=== PATIENT | female | born 1940 | race Caucasian/White ===

== ENCOUNTER 2025-02-02 04:34 | Inpatient (IN) | payer MEDICARE, OTHER ==
[2025-02-02] VITALS (12 sets, daily range): BP systolic 118–137; BP diastolic 44–78; PULSE 75–110; RESP 17–33; O2SAT 93–98
[~2025-02-02] VITALS: Ht 251.5 cm; Wt 57.6 kg
[2025-02-02] MEDS: ALBUTEROL SULF 2.5 MG/0.5ML(0.5%) NEB SOLN ONE (04:56)
[2025-02-02] MEDS: ALBUTEROL SULF 2.5 MG/0.5ML(0.5%) NEB SOLN NEB ONE (04:56)
[2025-02-02 05:31] LABS: Basophils # (auto) 0 10 ^3/uL (0-0.2); Eosinophils # (auto) 0 10 ^3/uL (0-0.8); Hematocrit 28.8 % (36.0-46.0); Mean Corpuscular Hgb Conc. 31.4 g/dL (32.0-36.0)
[2025-02-02 05:33] LABS: Basophils % (auto) 0.3 % (0.0-2.0); Lymphocytes # (auto) 0.4 10 ^3/uL (0.4-5.4); Lymphocytes % (auto) 5.5 % (10.0-50.0); Mean Corpuscular Hemoglobin 25.2 pg (28.0-32.0); Mean Corpuscular Volume 80.3 fL (80.0-100.0); Monocytes # (auto) 0.6 10 ^3/uL (0-1.3); Monocytes % (auto) 7.5 % (0.0-12.0); Neutrophils # (auto) 7.1 10 ^3/uL (1.6-8.6); Neutrophils % (auto) 86.7 % (37.0-80.0); Nucleated Red Blood Cells % 0.3 %; Platelet Count (auto) 131 10^3/uL (140-450); Red Blood Cells 3.58 10^6/uL (4.0-5.20); Red Cell Distribution Width 18.5 % (11.8-14.3); White Blood Cell 8.2 10^3/uL (4.4-10.8)
--- NOTE | 2025-02-02 05:40 | DVH ---
EXAM: XR Chest, 1 View CLINICAL INDICATION: SOB TECHNIQUE: Frontal view of the chest. COMPARISON: None FINDINGS: LUNGS AND PLEURAL SPACES: See below. HEART: Cardiomegaly with pulmonary congestion and edema. Superimposed pneumonia cannot be excluded. MEDIASTINUM: Unremarkable. Normal mediastinal contour. BONES/JOINTS: Unremarkable. No acute fracture. OTHER FINDINGS: . IMPRESSION: Cardiomegaly with pulmonary congestion and edema. Superimposed pneumonia cannot be excluded.
[2025-02-02 05:44] LABS: Albumin 3.8 g/dL (3.2-4.8); Alkaline Phosphatase 87 U/L (46-116); Anion Gap 12 (5-15); BUN/Creatinine Ratio 18.3 (10.0-20.0); Bilirubin, Total 0.5 mg/dL (0.2-1.0); Calcium 9.1 mg/dL (8.7-10.4); Potassium 4.4 mmol/L (3.5-5.1); Sodium 143 mmol/L (136-145)
--- NOTE | 2025-02-02 05:53 | ED.PDOC ---
History of Present Illness HPI Comments 84 y/o F is BIBA from [facility] ([facility]) for NSTEMI transfer, today. Patient is reported to have, initially, seen at [facility] for hematuria/vaginal bleeding and shortness of breath, yesterday, was found tachypneic, hypoxic, with positive JVD, yielding concern for possible CHF exacerbation. Patient was also noted to have been found with a hemoglobin of 7.7 and was transfused with blood after facility alongside with a BNP elevation at a value of approximately 700. Her chest x-ray performed at [facility] also showed cardiomegaly. During her course stay, she was also noted to have been found desaturating and was placed on BiPAP and given a nitroglycerin patch, which following troponin levels showed increasing trend, indicating for NSTEMI. Prior to arrival, patient was given also a heparin bolus drip. On arrival to ED, patient reports no additional complaints aside from what was stated earlier, such as chest pain, nausea, vomiting, cough, or congestion. Per [facility] transfer record, patient has a history of AFib, stage IV lung cancer, ovarian cancer status post total hysterectomy, CVA, hypertension, recurrent UTIs, coronary angioplasty, and heart valve replacement. Time Seen by MD: 04:30 Reviewed Notes: Nurses Notes, Butcher Apprentice Notes, Medications, Allergies Allergies: Coded Allergies: Diphenhydramine (Verified Allergy, Unknown, 02/02/25) Home Meds Reported Medications Pantoprazole Sodium Sesquihydr (Pantoprazole Sodium) 40 Mg Tab, 1 TAB PO DAILY 02/02/25 Tolterodine Tartrate (Tolterodine Tartrate ER) 2 Mg Cap, 1 TAB PO DAILY 02/02/25 Warfarin Sodium (Warfarin Sodium) 3 Mg Tab, 1 TAB PO DAILY 02/02/25 Warfarin Sodium (Warfarin Sodium) 2 Mg Tab, 1 TAB PO DAILY 02/02/25 Amlodipine Besylate (Amlodipine Besylate) 10 Mg Tab, 1 TAB PO DAILY 02/02/25 Nitroglycerin (Nitroglycerin Transdermal) 0.4 Mg/Hr Dis, 1 PATCH TD DAILY 02/02/25 Lovastatin (Lovastatin) 20 Mg Tab, 1 TAB PO DAILY 02/02/25 Allopurinol (Allopurinol) 100 Mg Tab, 1 TAB PO DAILY 02/02/25 Magnesium Oxide (Magnesium Oxide) 400 Mg Tab, 1 TAB PO TID 02/02/25 Folic Acid (Folic Acid) 1 Mg Tab, 1 TAB PO BID 02/02/25 Valsartan (Valsartan) 80 Mg Tab, 1 TAB PO DAILY 02/02/25 Amiodarone HCl (Amiodarone HCl) 200 Mg Tab, 1 TAB PO BID 02/02/25 Information Source: Patient, Emergency Med Personnel Mode of Arrival: EMS Severity: Moderate Timing: Hours Duration: Since onset Prehospital treatment: Other (See HPI) Review of Systems: REVIEW OF SYSTEMS: No fever, no chills, or fatigue HEENT: No sore throat, no earache, no congestion, no neck pain. Cardiac: No chest pain. No palpitations. Lungs: shortness of breath, no cough. GI: No nausea, no vomiting, no diarrhea, no constipation, no abdominal pain : Hematuria/Vaginal bleeding. No dysuria, frequency, or urgency. Musculoskeletal: No joint pain , no joint swelling, no extremity edema. Skin: No rash, no itching. Neuro: No headache, no dizziness, no weakness Vital Signs Vital Signs Date Time Temp Pulse Resp B/P (MAP) Pulse Ox O2 Delivery O2 Flow Rate FiO2 02/02/25 06:11 87 127/69 98 Facial BiPAP Mask 100 02/02/25 06:00 25 02/02/25 04:40 99.1 99.1 Physical Exam General: Awake, alert and oriented. No acute distress. Skin: Skin in warm, dry and intact. Appropriate color for ethnicity. HEENT: The head is normocephalic and atraumatic. Conjunctivae are clear without exudates or hemorrhage. Sclera is non-icteric. EOM are intact. No signs of nystagmus. Eyelids are normal in appearance without swelling or lesions. Oral mucosa is pink and moist Neck: The neck is supple with normal range of motion. No JVD. Cardiac: Tachycardic. Rhythm is irregular No murmurs, gallops, or rubs are auscultated. Respiratory: Tachypneic. Rales in bilateral lung briones. No signs of respiratory distress. Lung sounds are clear in all lobes bilaterally without rhonchi or wheezes. Abdominal: Abdomen is soft, non-tender without distention. Bowel sounds are present and normoactive in all four quadrants. Extremities: Upper and lower extremities are atraumatic in appearance without deformity or edema. Neurological: The patient is awake, alert and oriented to person, place, and time with normal speech. Speech is clear. There is no facial asymmetry. Psychiatric: Appropriate mood and affect. Good judgement and insight. No visual or auditory hallucinations. Past Medical History PAST MEDICAL HISTORY: AFIB, Cancer (Malignant neoplasm of lung and ovary), CVA, HTN, UTI'S (recurrent ) Surgical History: Appendectomy, Hysterectomy (total ) Surgical History (Other): Coronary angioplasty, heart valve replacement STATE INSPECTOR History: Denies all STATE INSPECTOR Hx Family History Family History: Unknown Social History Smoker: Non-Smoker Alcohol: Denies ETOH Use Drugs: Denies Drug Use Lives In: Home Was a procedure done? Was a procedure done?: No EKG EKG : Pulse Rate (adult): 107 [place]: Normal Cardiac Rhythm: Afib Block: None Hypertrophy: None ST: Normal Differential Dx Considerations may include: CHF exacerbation, pneumonia, acute coronary syndrome, UTI X-Ray, Labs, Meds, VS Vital Signs Date Time Temp Pulse Resp B/P (MAP) Pulse Ox O2 Delivery O2 Flow Rate FiO2 02/02/25 06:11 87 127/69 98 Facial BiPAP Mask 100 02/02/25 06:00 96 25 127/69 (88) 96 02/02/25 05:53 107 02/02/25 05:00 95 24 146/74 (98) 96 02/02/25 04:56 96 152/80 Facial BiPAP Mask 100 02/02/25 04:41 107 02/02/25 04:40 99.1 109 36 152/80 (104) 84 99.1 02/02/25 04:39 95 Facial BiPAP Mask 100 02/02/25 04:38 98.4 116 24 124/69 (87) 89 02/02/25 04:36 Bi-Pap+ 70 70 Lab Test 02/02/25 06:31 02/02/25 06:03 02/02/25 05:00 Range/Units Blood Gas Specimen Type Arterial Blood Gas Sample Site Left radial Blood Gas Patient Temperature 37.0 Arterial Blood Date Drawn [id number] Arterial Blood pH 7.476 H 7.350-7.450 Arterial Blood Partial Pressure CO2 23.9 L 32.0-45.0 mmHg Arterial Blood Partial Pressure O2 101.1 83.0-108.0 mmHg Arterial Blood HCO3 17.2 L 21.0-28.0 mmol/L Arterial Blood Oxygen Saturation 96.9 94.0-98.0 % Arterial Blood Base Excess -5.3 L -2.0-3.0 mmol/L Arterial Blood Oxyhemoglobin 96.0 94.0-98.0 % Arterial Blood Carboxyhemoglobin 0.6 0.5-1.5 % Arterial Blood Methemoglobin 0.3 0.0-1.5 % Mic Test Yes Blood Gas Total Hemoglobin 8.90 L 12.0-16.0 g/dL Blood Gas Set Respiration Rate 12.0 Blood Gas Modality Mask - bipap FiO2 % 100.0 Blood Gas Spontaneous Tidal Volume 540 Blood Gas EPAP 6 Blood Gas IPAP 16 Blood Gas Comments I-time 0.90 sec. Troponin I High Sensitivity 2796 *H 2994 *H </=34 ng/L White Blood Count 8.2 4.4-10.8 10^3/uL Red Blood Count 3.58 L 4.0-5.20 10^6/uL Hemoglobin 9.0 L 12.2-16.2 g/dL Hematocrit 28.8 L 36.0-46.0 % Mean Corpuscular Volume 80.3 80.0-100.0 fL Mean Corpuscular Hemoglobin 25.2 L 28.0-32.0 pg Mean Corpuscular Hemoglobin Concent 31.4 L 32.0-36.0 g/dL Red Cell Distribution Width 18.5 H 11.8-14.3 % Platelet Count 131 L 140-450 10^3/uL Mean Platelet Volume 7.9 6.9-10.8 fL Neutrophils (%) (Auto) 86.7 H 37.0-80.0 % Lymphocytes (%) (Auto) 5.5 L 10.0-50.0 % Monocytes (%) (Auto) 7.5 0.0-12.0 % Eosinophils (%) (Auto) 0.0 0.0-7.0 % Basophils (%) (Auto) 0.3 0.0-2.0 % Neutrophils # (Auto) 7.1 1.6-8.6 10 ^3/uL Lymphocytes # (Auto) 0.4 0.4-5.4 10 ^3/uL Monocytes # (Auto) 0.6 0-1.3 10 ^3/uL Eosinophils # (Auto) 0 0-0.8 10 ^3/uL Basophils # (Auto) 0 0-0.2 10 ^3/uL Nucleated Red Blood Cells 0.3 % Prothrombin Time 24.1 H 9.3-11.8 sec Prothrombin Time INR 2.49 H 0.9-1.15 Activated Partial Thromboplast Time 35.9 H 24.5-34.5 SEC Sodium Level 143 136-145 mmol/L Potassium Level 4.4 3.5-5.1 mmol/L Chloride Level 113 H 98-107 mmol/L Carbon Dioxide Level 18 L 20-31 mmol/L Anion Gap 12 5-15 Blood Urea Nitrogen 26 H 9-23 mg/dL Creatinine 1.42 H 0.550-1.02 mg/dL Glomerular Filtration Rate Calc 36 >90 mL/min BUN/Creatinine Ratio 18.3 10.0-20.0 Serum Glucose 151 H 74-106 mg/dL Hemoglobin A1c 5.9 H <5.7 % A1C Calcium Level 9.1 8.7-10.4 mg/dL Magnesium Level 2.0 1.6-2.6 mg/dL Total Bilirubin 0.5 0.2-1.0 mg/dL Aspartate Amino Transferase (AST) 76 H 13-40 U/L Alanine Aminotransferase (ALT) 95 H 7-40 U/L Alkaline Phosphatase 87 46-116 U/L B-Type Natriuretic Peptide 1447.37 0-100 pg/mL Total Protein 6.0 5.7-8.2 g/dL Albumin 3.8 3.2-4.8 g/dL Triglycerides Level 67 < 150 mg/dL Cholesterol Level 139 < 200 mg/dL LDL Cholesterol 37 < 100 mg/dL HDL Cholesterol 83 H 40-59 mg/dL Thyroid Stimulating Hormone (TSH) 0.49 L 0.55-4.78 uIU/mL Current Medications Medications (Trade) Dose Ordered Sig/Bebo Route Start Time Stop Time Status Last Admin Albuterol (Ventolin Medneb) 2.5 mg ONCE ONCE NEB 02/02/25 05:00 02/02/25 05:01 DC 02/02/25 04:56 Time of 1ST Reevaluation: 05:00 Reevaluation 1ST: Unchanged Patient Education/Counseling: Treatment, Need For Follow Up Family Education/Counseling: No Family Present Departure 1 Departure Time of Disposition: 05:09 Impression: Primary Impression: NSTEMI (non-ST elevated myocardial infarction) Additional Impressions: CHF exacerbation Hypoxia BiPAP (biphasic positive airway pressure) dependence Atrial fibrillation Disposition: ADMITTED INPATIENT Condition: Serious Comments 84-year-old female who presents to the emergency department transfer from [place] for NSTEMI, CHF exacerbation, hypoxia requiring BiPAP. Patient received heparin bolus at [place]. There was some concern for possible hematur ia/vaginal bleeding in the setting of anemia requiring blood transfusion. Patient admitted for further treatment, evaluation and monitoring. Critical Care Note Critical Care Time?: Yes (45 min-critical care time only) Stability Stability form required: No Heart Score Heart Score: Heart Score Response (Comments) Value History Moderate Suspicious 1 EKG Repolarization Disturb 1 Age >65 2 Risk Factors >3 or Hx ASHD 2 Troponin >3 x's Normal limit 2 Total 8 I personally scribed for RENÉE WEBER MD ([email or web address]) on 02/02/25 at 05:53. Electronically submitted by Regulo Torre ([email or web address]). RENÉE WEBER MD Feb 02, 2025 05:53
[2025-02-02 06:03] LABS: Alanine Aminotransferase 95 U/L (7-40); Aspartate Aminotransferase 76 U/L (13-40); Blood Urea Nitrogen 26 mg/dL (9-23); Carbon Dioxide 18 mmol/L (20-31); Chloride 113 mmol/L (98-107); Glucose 151 mg/dL (74-106)
[2025-02-02 06:39] LABS: Base Excess -5.3 mmol/L (-2.0-3.0)
[2025-02-02] MEDS ORDERED: MORPHINE SULFATE INJ 2 MG/ml SYRG IV PRN (07:00)
[2025-02-02] MEDS ORDERED: DOCUSATE SOD 100 MG CAP PO PRN (07:00)
[2025-02-02] MEDS ORDERED: NITROGLYCERIN 0.4 MG SL TAB SL PRN (07:00)
[2025-02-02] MEDS ORDERED: HYDROcodone-ACET 5/325MG TAB PO PRN (07:00)
[2025-02-02] MEDS ORDERED: ONDANSETRON HCL 4 MG/2 ML VIAL IV PRN (07:00)
[2025-02-02 08:10] LABS: INR 2.49 (0.9-1.15); Partial Thromboplastin Time 35.9 SEC (24.5-34.5); Prothrombin Time 24.1 sec (9.3-11.8)
[2025-02-02 08:16] LABS: Base Excess -4.1 mmol/L (-2.0-3.0)
--- NOTE | 2025-02-02 08:21 | DVHHP2 ---
History of Present Illness Reason for Visit: NSTEMI History of Present Illness Day, Mago Solis is an 84-year-old female with past medical history of ovarian cancer, CVA, open heart surgery, hypertension, and atrial fibrillation, who was transferred from [facility] for NSTEMI. Patient states she went to [facility] for hematuria and UTI. The patient has a history of chronic hematuria, she is being followed by urology as an outpatient. She has been placed on antibiotics numerous times over the last 6 months due to this problem. The patient felt the hematuria was worsening so she went to the hospital. While she was at the hospital, she was found to be tachypneic, anemic, and had elevated troponin. She was transfused 1 unit of PRBC, and transferred here due to NSTEMI. Patient is alert and oriented, but forgetful at times and will ask or say random things that have anything to do with the situation. She states she had ovarian cancer. 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 X-ray shows cardiomegaly, pulmonary congestion, edema, possible pneumonia. Patient is tachypneic, using accessory muscles, with rales and rhonchi throughout. She is on BiPAP with 60% FiO2. She was on high flow at 50L/100% but was desaturating, so she was placed on BiPAP. Cardiology and urology was consulted, ECHO, heparin drip, IV antibiotics, IV Lasix ordered, and admitted to [facility]. Cardiovascular: AFIB, HTN, Other STUNT DOUBLE: CVA (2018) Heme/Onc: Cancer (Ovarian-2008) Past Surgical History: CABG, Other (PTCA-stent, multiple baldder surgeries) Smoke: No ALCOHOL: none Drugs: None Lives: with Family Domestic Violence: Neg Review of Systems Constitutional: No: Fever, Chills, Sweats, Weakness, Malaise, Other Eyes: No: Pain, Vision change, Conjunctivae inflammation, Eyelid inflammation, Other, Redness ENT: No: Ear pain, Ear discharge, Nose pain, Nose discharge, Nose congestion, Mouth pain, Mouth swelling, Throat pain, Throat swelling, Other Respiratory: No: Cough, Dry, Shortness of breath, SOB with excertion, Wheezing, Hemoptysis, Pleuritic Pain, Sputum, Wheezing, Other Cardiovascular: No: Chest Pain, Palpitations, Orthopnea, Paroxysmal Noc. Dyspnea, Edema, Lt Headedness, Other Gastrointestinal: No: Nausea, Vomiting, Abdominal Pain, Diarrhea, Constipation, Melena, Hematochezia, Other Genitourinary: No Dysuria, No Frequency, No Incontinence; Hematuria; No Retention, No Other Musculoskeletal: No: other, neck pain, shoulder pain, arm pain, back pain, hand pain, leg pain, foot pain Skin: No: Rash, Lesions, Jaundice, Bruising, Other Neurological: No: Weakness, Numbness, Incoordination, Change in speech, Confusion, Seizures, Other Allergies: Coded Allergies: Diphenhydramine (Verified Allergy, Unknown, 02/02/25) Medications Current Medications Medications Dose Ordered Sig/Bebo Route Start Time Stop Time Status Last Admin Dose Admin Sodium Chloride 10 ml Q8HR IV 02/02/25 14:00 UNV Acetaminophen/ Hydrocodone Bitart 1 tab Q4HP PRN PO 02/02/25 07:00 UNV Ondansetron HCl 4 mg Q4HP PRN IV 02/02/25 07:00 UNV Docusate Sodium 100 mg BIDPRN PRN PO 02/02/25 07:00 UNV Acetaminophen 650 mg Q6HP PRN PO 02/02/25 07:00 UNV Nitroglycerin 0.4 mg Q5MINP PRN SL 02/02/25 07:00 UNV Morphine Sulfate 2 mg Q30M PRN IV 02/02/25 07:00 UNV Heparin Sodium/ Dextrose 250 ml @ 6.96 mls/hr Q24H IV 02/02/25 07:45 UNV Exam Vital Signs Vital Signs Date Time Temp Pulse Resp B/P (MAP) Pulse Ox O2 Delivery O2 Flow Rate FiO2 02/02/25 07:05 104 33 93 60.0 100 02/02/25 06:11 127/69 Facial BiPAP Mask 02/02/25 04:40 99.1 99.1 General Appearance: Alert, Oriented X3, Cooperative, severe distress HEENT: Atraumatic, PERRLA Respiratory: Other (rales and rhonchi throughout) Cardiovascular: Normal S1, Normal S2, Other (tachycardia) Abdominal: Normal bowel sounds, Soft, No tenderness Extremities: No clubbing, No cyanosis, No edema, Normal pulses Skin: No rashes, No breakdown, No significant lesion Neuro: Other (short of breath with talking) Psych/Mental Status: Mental status NL Labs/Xrays Labs Test 02/02/25 06:31 02/02/25 06:03 02/02/25 05:00 Range/Units Blood Gas Specimen Type Arterial Blood Gas Sample Site Left radial Blood Gas Patient Temperature 37.0 Arterial Blood Date Drawn [id number] Arterial Blood pH 7.476 H 7.350-7.450 Arterial Blood Partial Pressure CO2 23.9 L 32.0-45.0 mmHg Arterial Blood Partial Pressure O2 101.1 83.0-108.0 mmHg Arterial Blood HCO3 17.2 L 21.0-28.0 mmol/L Arterial Blood Oxygen Saturation 96.9 94.0-98.0 % Arterial Blood Base Excess -5.3 L -2.0-3.0 mmol/L Arterial Blood Oxyhemoglobin 96.0 94.0-98.0 % Arterial Blood Carboxyhemoglobin 0.6 0.5-1.5 % Arterial Blood Methemoglobin 0.3 0.0-1.5 % Mic Test Yes Blood Gas Total Hemoglobin 8.90 L 12.0-16.0 g/dL Blood Gas Set Respiration Rate 12.0 Blood Gas Modality Mask - bipap FiO2 % 100.0 Blood Gas Spontaneous Tidal Volume 540 Blood Gas EPAP 6 Blood Gas IPAP 16 Blood Gas Comments I-time 0.90 sec. Troponin I High Sensitivity 2796 *H </=34 ng/L White Blood Count 8.2 4.4-10.8 10^3/uL Red Blood Count 3.58 L 4.0-5.20 10^6/uL Hemoglobin 9.0 L 12.2-16.2 g/dL Hematocrit 28.8 L 36.0-46.0 % Mean Corpuscular Volume 80.3 80.0-100.0 fL Mean Corpuscular Hemoglobin 25.2 L 28.0-32.0 pg Mean Corpuscular Hemoglobin Concent 31.4 L 32.0-36.0 g/dL Red Cell Distribution Width 18.5 H 11.8-14.3 % Platelet Count 131 L 140-450 10^3/uL Mean Platelet Volume 7.9 6.9-10.8 fL Neutrophils (%) (Auto) 86.7 H 37.0-80.0 % Lymphocytes (%) (Auto) 5.5 L 10.0-50.0 % Monocytes (%) (Auto) 7.5 0.0-12.0 % Eosinophils (%) (Auto) 0.0 0.0-7.0 % Basophils (%) (Auto) 0.3 0.0-2.0 % Neutrophils # (Auto) 7.1 1.6-8.6 10 ^3/uL Lymphocytes # (Auto) 0.4 0.4-5.4 10 ^3/uL Monocytes # (Auto) 0.6 0-1.3 10 ^3/uL Eosinophils # (Auto) 0 0-0.8 10 ^3/uL Basophils # (Auto) 0 0-0.2 10 ^3/uL Nucleated Red Blood Cells 0.3 % Sodium Level 143 136-145 mmol/L Potassium Level 4.4 3.5-5.1 mmol/L Chloride Level 113 H 98-107 mmol/L Carbon Dioxide Level 18 L 20-31 mmol/L Anion Gap 12 5-15 Blood Urea Nitrogen 26 H 9-23 mg/dL Creatinine 1.42 H 0.550-1.02 mg/dL Glomerular Filtration Rate Calc 36 >90 mL/min BUN/Creatinine Ratio 18.3 10.0-20.0 Serum Glucose 151 H 74-106 mg/dL Calcium Level 9.1 8.7-10.4 mg/dL Total Bilirubin 0.5 0.2-1.0 mg/dL Aspartate Amino Transferase (AST) 76 H 13-40 U/L Alanine Aminotransferase (ALT) 95 H 7-40 U/L Alkaline Phosphatase 87 46-116 U/L B-Type Natriuretic Peptide 1447.37 0-100 pg/mL Total Protein 6.0 5.7-8.2 g/dL Albumin 3.8 3.2-4.8 g/dL EXAM: XR Chest, 1 View FINDINGS: LUNGS AND PLEURAL SPACES: See below. HEART: Cardiomegaly with pulmonary congestion and edema. Superimposed pneumonia cannot be excluded. MEDIASTINUM: Unremarkable. Normal mediastinal contour. BONES/JOINTS: Unremarkable. No acute fracture. OTHER FINDINGS: . IMPRESSION: Cardiomegaly with pulmonary congestion and edema. Superimposed pneumonia cannot be excluded. Assessment/Plan Assessment/Plan Assessment: NSTEMI (non-ST elevated myocardial infarction), Acute respiratory failure, Hematuria, Bilateral pleural effusion, Possible pneumonia, Hypertension, Hyperlipidemia, Plan: Admit to [facility], Cardiology consult, Urology consult, ECHO, Heparin drip, High flow supplemental oxygen, PRN BiPAP, NPO, IV antibiotics, Thoracentesis, Home medications reconciled, Plan discussed with: Patient My Orders Orders - TATIANA LIU COMPUTER TECHNOLOGY TEACHER Procedure Category Date Status Time Oxygen By High-Flow RT 02/02/25 Transmitted 07:00 Abg W/ Co-Ox RT 02/02/25 Logged 08:00 Admit ADMIT 02/02/25 Transmitted 06:59 Code Status CODE 02/02/25 Transmitted 06:59 Sodium Chloride Lock PHA 02/02/25 Logged (Saline Lock Ns) 14:00 Hydrocodone-Acet PHA 02/02/25 Logged 5/325mg Tab ([place] 07:00 Ondansetron Hcl PHA 02/02/25 Logged (Zofran) 07:00 Docusate Sodium PHA 02/02/25 Logged Capsule (Colace 07:00 Complete Blood Count LAB 02/03/25 Verified 04:00 Comprehensive LAB 02/03/25 Verified Metabolic Panel 04:00 Npo (Nothing By DIET 02/02/25 Transmitted Mouth) Diet Breakfast Echo 2d Mode Cardiac US 02/02/25 Logged DOP 06:59 Condition: Critical [facility] 02/02/25 In Process 06:59 Acetaminophen Tablet PHA 02/02/25 Logged (Tylenol Tablet) 07:00 Nitroglycerin PHA 02/02/25 Logged Sublingual (Ntrostat 07:00 Morphine Sulfate PHA 02/02/25 Logged Injection 07:00 Stat Ekg For Chest [facility] 02/02/25 In Process Pain 06:59 Notify Of Changes [facility] 02/02/25 In Process From Base 06:59 Manager Of Case For [facility] 02/02/25 In Process 24 Hours 06:59 Emergency Dysrhythmia [facility] 02/02/25 In Process Protocol 06:59 Rhythm Strips Once [facility] 02/02/25 In Process Every Shift 06:59 Oxygen By Nasal RT 02/02/25 Transmitted Cannula 06:59 Furosemide Injection PHA 02/02/25 Logged (Lasix Injection) 07:45 Platelet Monitoring [facility] 02/02/25 In Process 07:43 Heparin Per [facility] 02/02/25 In Process Standardized Proce 07:43 Discontinue All Im TABBY 02/02/25 In Process Injections 07:43 PTPTT LAB 02/02/25 Transmitted 07:43 Heparin Sodium PHA 02/02/25 Logged (Porcine) 07:45 Heparin Drip/D5w PHA 02/02/25 Logged 100units/Ml 07:45 Date of Service: Feb 02, 2025 Billing Provider: TATIANA LIU Common Visit Codes: [id number] INP/OBS CARE (HIGH) TATIANA LIU Feb 02, 2025 08:21
--- NOTE | 2025-02-02 08:51 | CONS ---
Pharmacy Clinical Information: Heparin per pharmacy Current initial dose: 700 units/hr Current aPPT: 35.9 on 02/02/25 @0500 Bolus: Yes, 3400 units JOSE CIFUENTES PHARMACIST Feb 02, 2025 08:51
[2025-02-02] MEDS: FUROSEMIDE 40 MG/4 ML VIAL IV ONE (09:01)
[2025-02-02] MEDS: HEPARIN SODIUM (PORCINE) 5000 UNITS/ML 1ML VIAL IV ONE (09:03)
--- NOTE | 2025-02-02 09:06 | DVHINCON2 ---
Date Seen: Feb 02, 2025 Referring Physician ELMER Persaud Reason for Consultation NSTEMI History of Present Illness This is an 84-year-old female patient who presents to the emergency room with chief complaint of hematuria, urinary frequency, and urinary burning. The patient initially presented to [facility] where she was found to have a hemoglobin level of 7.7 and was subsequently transfused with 2 units of packed red blood cells. Once stabilized, the patient was brought to this facility for higher level of care given elevated troponin levels. She denies any cardiac problems such as chest pain, shortness of breath, palpitations, etc. Initial twelve lead electrocardiogram reveals atrial fibrillation with nonspecific ST segment changes to lateral leads. Initial troponin level of 2994ng/L with down trend thereafter. Significant past medical history includes congestive heart failure, coronary artery disease status post triple-vessel bypass CABG, myocardial infarction, bioprosthetic aortic valve replacement, atrial fibrillation (on amiodarone and warfarin therapy), hypertension, dyslipidemia, CVA, ovarian cancer status post chemotherapy and total hystere ctomy. The patient's daughter reports that the patient sees program director scouting in the outpatient setting. Of note, records from [facility] state that the patient has a stage IV lung cancer with metastasis. Spoke with the patient as well as her daughter, Rufino, both who state that this information is incorrect. They both report that the patient had ovarian cancer back in 2008 in which she underwent chemotherapy and a total hysterectomy. She states that she has been in remission from cancer since then and does not have any active cancers at this time. Past Medical History Past medical history reviewed. No other significant than mentioned above. Past Surgical History Open heart Bioprosthetic aortic valve replacement Triple-vessel bypass CABG in 2018 Total hysterectomy Family History Family history reviewed. Social History Denies the use of tobacco, alcohol or illicit drugs. Allergies: Coded Allergies: Diphenhydramine (Verified Allergy, Unknown, 02/02/25) Home Meds Reported Medications Pantoprazole Sodium Sesquihydr (Pantoprazole Sodium) 40 Mg Tab, 1 TAB PO DAILY 02/02/25 Tolterodine Tartrate (Tolterodine Tartrate ER) 2 Mg Cap, 1 TAB PO DAILY 02/02/25 Warfarin Sodium (Warfarin Sodium) 3 Mg Tab, 1 TAB PO DAILY 02/02/25 Warfarin Sodium (Warfarin Sodium) 2 Mg Tab, 1 TAB PO DAILY 02/02/25 Amlodipine Besylate (Amlodipine Besylate) 10 Mg Tab, 1 TAB PO DAILY 02/02/25 Nitroglycerin (Nitroglycerin Transdermal) 0.4 Mg/Hr Dis, 1 PATCH TD DAILY 02/02/25 Lovastatin (Lovastatin) 20 Mg Tab, 1 TAB PO DAILY 02/02/25 Allopurinol (Allopurinol) 100 Mg Tab, 1 TAB PO DAILY 02/02/25 Magnesium Oxide (Magnesium Oxide) 400 Mg Tab, 1 TAB PO TID 02/02/25 Folic Acid (Folic Acid) 1 Mg Tab, 1 TAB PO BID 02/02/25 Valsartan (Valsartan) 80 Mg Tab, 1 TAB PO DAILY 02/02/25 Amiodarone HCl (Amiodarone HCl) 200 Mg Tab, 1 TAB PO BID 02/02/25 Home Meds Home medications reviewed. Current Medications Current Medications Medications (Trade) Dose Ordered Sig/Bebo Route PRN Reason Start Time Stop Time Status Last Admin Sodium Chloride (Saline Lock Ns) 10 ml Q8HR IV 02/02/25 14:00 Acetaminophen/ Hydrocodone Bitart ([place] 5/325MG Tab) 1 tab Q4HP PRN PO MODERATE PAIN (4-6 PAIN SCALE) 02/02/25 07:00 Ondansetron HCl (Zofran) 4 mg Q4HP PRN IV NAUSEA / VOMITING 02/02/25 07:00 Docusate Sodium (Colace Capsule) 100 mg BIDPRN PRN PO FOR CONSTIPATION 02/02/25 07:00 Acetaminophen (Tylenol Tablet) 650 mg Q6HP PRN PO PAIN SCALE 1-3 OR TEMP>100.4 02/02/25 07:00 Nitroglycerin (Ntrostat Sublingual) 0.4 mg Q5MINP PRN SL FOR CHEST PAIN 02/02/25 07:00 Morphine Sulfate 2 mg Q30M PRN IV FOR CHEST PAIN 02/02/25 07:00 Heparin Sodium/ Dextrose 250 ml @ 7 mls/hr Q24H IV 02/02/25 07:45 Review of Systems Constitutional: No symptom reported Ears, Nose, & Throat: No symptom reported Eyes: No symptom reported Neurological: No symptoms reported Pulmonary/Respiratory: No symptoms reported Cardiovascular: No symptom reported Gastrointestinal: No symptom reported Genitourinary: Dysuria, vaginal bleeding Musculoskeletal: No symptom reported Skin: No symptom reported Psychiatric: No symptom reported Endocrine: No symptom reported Hematologic/Lymphatic: No symptom reported Vital Signs Vital Signs Date Time Temp Pulse Resp B/P (MAP) Pulse Ox O2 Delivery O2 Flow Rate FiO2 02/02/25 09:01 130/63 02/02/25 08:25 100 96 Facial BiPAP Mask 100 02/02/25 07:59 98.3 33 98.3 02/02/25 07:05 60.0 Physical Exam General Appearance: Cooperative. Pulmonary/Respiratory: Coarse throughout. On high-flow nasal cannula, FIO2 100%, 60L Cardiovascular/Chest: Irregular rate and rhythm. Peripheral Pulses: 2+ Radial (R). 2+ Radial (L). 2+ Pedal (R). 2+ Pedal (L) Abdominal Exam: Normal bowel sounds. Ankle Exam: Negative ankle edema Lower extremities: Negative lower extremity edema Neuro/Mental Status: A/OX4, coherent. Thoughts/Psych: Normal thought pattern. Appropriate mood and affect. Good judgment and insight. Appearance: No acute distress. Skin Exam: Normal inspection. Pale. Warm and dry. Labs/Diagnostic Data Labs Test 02/02/25 08:14 02/02/25 08:10 02/02/25 06:31 02/02/25 05:00 Range/Units Troponin I High Sensitivity 2623 *H </=34 ng/L Blood Gas Specimen Type Arterial Blood Gas Sample Site Left radial Blood Gas Patient Temperature 37.0 Arterial Blood Date Drawn [id number] Arterial Blood pH 7.488 H 7.350-7.450 Arterial Blood Partial Pressure CO2 24.6 L 32.0-45.0 mmHg Arterial Blood Partial Pressure O2 56.7 L 83.0-108.0 mmHg Arterial Blood HCO3 18.2 L 21.0-28.0 mmol/L Arterial Blood Oxygen Saturation 88.6 L 94.0-98.0 % Arterial Blood Base Excess -4.1 L -2.0-3.0 mmol/L Arterial Blood Oxyhemoglobin 87.6 L 94.0-98.0 % Arterial Blood Carboxyhemoglobin 0.9 0.5-1.5 % Arterial Blood Methemoglobin 0.2 0.0-1.5 % Mic Test Yes Blood Gas Total Hemoglobin 9.40 L 12.0-16.0 g/dL Blood Gas Liter Flow 60.00 Blood Gas Modality High flow FiO2 % 100.0 Blood Gas Set Respiration Rate 12.0 Blood Gas Spontaneous Tidal Volume 540 Blood Gas EPAP 6 Blood Gas IPAP 16 Blood Gas Comments I-time 0.90 sec. White Blood Count 8.2 4.4-10.8 10^3/uL Red Blood Count 3.58 L 4.0-5.20 10^6/uL Hemoglobin 9.0 L 12.2-16.2 g/dL Hematocrit 28.8 L 36.0-46.0 % Mean Corpuscular Volume 80.3 80.0-100.0 fL Mean Corpuscular Hemoglobin 25.2 L 28.0-32.0 pg Mean Corpuscular Hemoglobin Concent 31.4 L 32.0-36.0 g/dL Red Cell Distribution Width 18.5 H 11.8-14.3 % Platelet Count 131 L 140-450 10^3/uL Mean Platelet Volume 7.9 6.9-10.8 fL Neutrophils (%) (Auto) 86.7 H 37.0-80.0 % Lymphocytes (%) (Auto) 5.5 L 10.0-50.0 % Monocytes (%) (Auto) 7.5 0.0-12.0 % Eosinophils (%) (Auto) 0.0 0.0-7.0 % Basophils (%) (Auto) 0.3 0.0-2.0 % Neutrophils # (Auto) 7.1 1.6-8.6 10 ^3/uL Lymphocytes # (Auto) 0.4 0.4-5.4 10 ^3/uL Monocytes # (Auto) 0.6 0-1.3 10 ^3/uL Eosinophils # (Auto) 0 0-0.8 10 ^3/uL Basophils # (Auto) 0 0-0.2 10 ^3/uL Nucleated Red Blood Cells 0.3 % Prothrombin Time 24.1 H 9.3-11.8 sec Prothrombin Time INR 2.49 H 0.9-1.15 Activated Partial Thromboplast Time 35.9 H 24.5-34.5 SEC Sodium Level 143 136-145 mmol/L Potassium Level 4.4 3.5-5.1 mmol/L Chloride Level 113 H 98-107 mmol/L Carbon Dioxide Level 18 L 20-31 mmol/L Anion Gap 12 5-15 Blood Urea Nitrogen 26 H 9-23 mg/dL Creatinine 1.42 H 0.550-1.02 mg/dL Glomerular Filtration Rate Calc 36 >90 mL/min BUN/Creatinine Ratio 18.3 10.0-20.0 Serum Glucose 151 H 74-106 mg/dL Calcium Level 9.1 8.7-10.4 mg/dL Total Bilirubin 0.5 0.2-1.0 mg/dL Aspartate Amino Transferase (AST) 76 H 13-40 U/L Alanine Aminotransferase (ALT) 95 H 7-40 U/L Alkaline Phosphatase 87 46-116 U/L B-Type Natriuretic Peptide 1447.37 0-100 pg/mL Total Protein 6.0 5.7-8.2 g/dL Albumin 3.8 3.2-4.8 g/dL Assessment NSTEMI Coronary artery disease status post triple-vessel bypass CABG Acute on chronic decompensated HFrEF, NYHA class III Atrial fibrillation, likely paroxysmal (on Coumadin and amiodarone) Bioprosthetic aortic valve replacement History myocardial infarction Hypertension Dyslipidemia Acute hypoxic respiratory failure Pneumonia Acute kidney injury Hematuria CVA History of ovarian cancer, now in remission Plan/Recommendation We will continue with the following plan/recommendations (Dr. Rust): * Transthoracic echocardiogram to evaluate cardiac function * Strict intake and output, daily weights, maintain fluid restriction * [id number] VASc score: 6 points HAS-BLED: 3 points * Hold anticoagulation given severe anemia and hematuria * Continue antiarrhythmic agent amiodarone * Hold beta-elisabeth until patient properly diuresed * D/C heparin given active hematuria, s/p PRBC * Keep hemoglobin >8.0 given hx of CAD * Diuresis as tolerated * Close Cardiac surveillance Case discussed with Dr. Rust. The patient who presents with an elevated troponin level denies any chest pain or cardiac symptoms. Elevated troponin level can be secondary to demand mismatch ischemia from severe anemia, underlying congestive heart failure exacerbation, and pneumonia. NSTEMI type 1 can not fully be excluded at this time. For now, we will opt for medical management given patient's clinical presentation and high oxygen requirement now needing BiPAP. Further recommendations per clinical course and progression. Thank you for allowing us to care for this patient. Please call with any questions or concerns. Critical care time spent: 42 minutes This medical document was created using an electronic medical record system with voice recognition software and computerized dictation system. Although this document has been carefully reviewed, there might still be some phonetic and typographical errors. Occasional wrong-word or ``sound-alike substitutions may have occurred due to the inherent limitations of voice recognition software. These areas are purely typographical due to imperfections of the software programs and do not reflect any compromise in the patient's medical care. Please read the chart carefully and recognize, using context, where these substitutions have occurred. Plan discussed with: Patient NYHA Physical activity limitations: Class3(Marked) ordinary Date of Service: Feb 02, 2025 Billing Provider: NEMESIO CONSTANTINO Cardiology Common Codes: 38305-VRNZRMM INP/OBS CARE (High) Cardiology Consultation Codes: [id number] CONSULT <45MIN NEMESIO CONSTANTINO Feb 02, 2025 09:05
[2025-02-02 09:10] LABS: Urine Bacteria None Seen /hpf (None Seen)
[2025-02-02] MEDS ORDERED: PANT40T PO (09:14)
[2025-02-02] MEDS ORDERED: ALLO100T PO (09:14)
[2025-02-02] MEDS ORDERED: NITR0.4D5 TD (09:14)
[2025-02-02] MEDS ORDERED: AMLO1TAB23 PO (09:14)
[2025-02-02] MEDS ORDERED: MAGN400T6 PO (09:14)
[2025-02-02] MEDS ORDERED: AMIO200T13 PO (09:14)
[2025-02-02] MEDS ORDERED: LOVA20TA4 PO (09:14)
[2025-02-02] MEDS ORDERED: FOLI-119 PO (09:14)
[2025-02-02] MEDS ORDERED: TOLT1CAP26 PO (09:14)
[2025-02-02] MEDS ORDERED: WARF4TAB69 PO (09:14)
[2025-02-02] MEDS ORDERED: WARF-111 PO (09:14)
[2025-02-02] MEDS ORDERED: VALS1TAB57 PO (09:14)
[2025-02-02] MEDS: HEPARIN DRIP/D5W 100UNITS/ML 250 ML IV SCH (09:24)
[2025-02-02 09:29] LABS: Urine Blood 3+ /uL (Negative); Urine Clarity Ex.Turbid (Clear); Urine Color Red (Yellow); Urine Protein, UAD 4+ (Negative); Urine Specific Gravity 1.049 (1.001-1.035); Urine Squamous Epithelial Cell None Seen /hpf (<5); Urine Urobilinogen Normal (Negative); Urine WBC 521 /HPF (0-5); Urine pH 8.5 (5.0-9.0)
[2025-02-02] MEDS ORDERED: PATIENTS OWN MEDICATION (Amlodipine Besylate 1 TAB) PO SCH (10:00)
[2025-02-02] MEDS ORDERED: PATIENTS OWN MEDICATION (Folic Acid 1 TAB) PO SCH (10:00)
[2025-02-02] MEDS: NITROGLYCERIN 0.4MG/HR TOPICAL PATCH TD SCH (10:00)
[2025-02-02] MEDS: TOLTERODINE TARTRATE 2 MG PO SCH (10:00)
--- NOTE | 2025-02-02 10:57 | ECG ---
[facility] Test Date: 2025-02-02 Test Time: 04:41:02 Pat Name: ZANA WRIGHT [facility] Gender[facility] F Watch Dial Stoner: HALLE : 1940 Requested By: RENÉE WEBER Order Number: [id number] Reading MD: Emiliano Rust Measurements Intervals [place] Rate: 107 P: 0 ME: 0 QRS: -68 QRSD: 95 T: 91 QT: 364 QTc: 486 Interpretive Statements Atrial fibrillation Left anterior fascicular block Anterior infarct, old Nonspecific T abnormalities, lateral leads Electronically Signed On 02-05-2025 18:53:06 PDT by Emiliano Rust Please click the below link to view image of tracing.
--- NOTE | 2025-02-02 11:26 | DVHINCON2 ---
Date of service: Feb 02, 2025 Referring Physician Hospitalist Reason for Consultation Hematuria History of Present Illness Patient is known to [facility] for history of hematuria. She had undergone multiple cystoscopies with resections dating back to 2014 with no evidence of malignancy reported. Patient is admitted to [facility] via transfer from [facility] for non-STEMI 84-year-old female with past medical history of ovarian cancer, CVA, open heart surgery, hypertension, and atrial fibrillation, who was transferred from [facility] for NSTEMI. Patient states she went to [facility] for hematuria and UTI. The patient has a history of chronic hematuria, she is being followed by urology as an outpatient. She has been placed on antibiotics numerous times over the last 6 months due to this problem. The patient felt the hematuria was worsening so she went to the hospital. While she was at the hospital, she was found to be tachypneic, anemic, and had elevated troponin. She was transfused 1 unit of PRBC, and transferred here due to NSTEMI. Patient is alert and oriented, but forgetful at times and will ask or say random things that have anything to d o with the situation. She states she had ovarian cancer. 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 X-ray shows cardiomegaly, pulmonary congestion, edema, possible pneumonia. Patient is tachypneic, using accessory muscles, with rales and rhonchi throughout. She is on BiPAP with 60% FiO2. She was on high flow at 50L/100% but was desaturating, so she was placed on BiPAP. Cardiology and urology was consulted, ECHO, heparin drip, IV antibiotics, IV Lasix ordered, and admitted to [facility]. Past Medical History Cardiovascular: AFIB, HTN, Other PRESCRIPTION CLERK LENSES: CVA (2018) Heme/Onc: Cancer (Ovarian-2008) Past Surgical History CABG, Other (PTCA-stent ), Hysterectomy, multiple transurethral resection of the bladder tumors all noted to be benign Allergies: Coded Allergies: Diphenhydramine (Verified Allergy, Unknown, 02/02/25) Home Meds Reported Medications Pantoprazole Sodium Sesquihydr (Pantoprazole Sodium) 40 Mg Tab, 1 TAB PO DAILY 02/02/25 Tolterodine Tartrate (Tolterodine Tartrate ER) 2 Mg Cap, 1 TAB PO DAILY 02/02/25 Warfarin Sodium (Warfarin Sodium) 3 Mg Tab, 1 TAB PO DAILY 02/02/25 Warfarin Sodium (Warfarin Sodium) 2 Mg Tab, 1 TAB PO DAILY 02/02/25 Amlodipine Besylate (Amlodipine Besylate) 10 Mg Tab, 1 TAB PO DAILY 02/02/25 Nitroglycerin (Nitroglycerin Transdermal) 0.4 Mg/Hr Dis, 1 PATCH TD DAILY 02/02/25 Lovastatin (Lovastatin) 20 Mg Tab, 1 TAB PO DAILY 02/02/25 Allopurinol (Allopurinol) 100 Mg Tab, 1 TAB PO DAILY 02/02/25 Magnesium Oxide (Magnesium Oxide) 400 Mg Tab, 1 TAB PO TID 02/02/25 Folic Acid (Folic Acid) 1 Mg Tab, 1 TAB PO BID 02/02/25 Valsartan (Valsartan) 80 Mg Tab, 1 TAB PO DAILY 02/02/25 Amiodarone HCl (Amiodarone HCl) 200 Mg Tab, 1 TAB PO BID 02/02/25 Current Medications Current Medications Medications (Trade) Dose Ordered Sig/Bebo Route PRN Reason Start Time Stop Time Status Last Admin Sodium Chloride (Saline Lock Ns) 10 ml Q8HR IV 02/02/25 14:00 Acetaminophen/ Hydrocodone Bitart ([place] 5/325MG Tab) 1 tab Q4HP PRN PO MODERATE PAIN (4-6 PAIN SCALE) 02/02/25 07:00 Ondansetron HCl (Zofran) 4 mg Q4HP PRN IV NAUSEA / VOMITING 02/02/25 07:00 Docusate Sodium (Colace Capsule) 100 mg BIDPRN PRN PO FOR CONSTIPATION 02/02/25 07:00 Acetaminophen (Tylenol Tablet) 650 mg Q6HP PRN PO PAIN SCALE 1-3 OR TEMP>100.4 02/02/25 07:00 Nitroglycerin (Ntrostat Sublingual) 0.4 mg Q5MINP PRN SL FOR CHEST PAIN 02/02/25 07:00 Morphine Sulfate 2 mg Q30M PRN IV FOR CHEST PAIN 02/02/25 07:00 Heparin Sodium/ Dextrose 250 ml @ 7 mls/hr Q24H IV 02/02/25 07:45 02/02/25 09:24 Ceftriaxone Sodium 50 ml @ 100 mls/hr DAILY@09 IV 02/02/25 09:00 Allopurinol (Zyloprim Tablet) 100 mg DAILY PO 02/02/25 10:00 Amiodarone HCl (Cordarone Tablet) 200 mg BID PO 02/02/25 10:00 Nitroglycerin (Nitrodur 0.4MG/ Hr) 1 patch DAILY TD 02/02/25 10:00 Pantoprazole Sodium (Protonix Tablet) 40 mg DAILY PO 02/02/25 10:00 Valsartan (Diovan) 80 mg DAILY PO 02/02/25 10:00 Patient Own Medication 1 tab DAILY PO 02/02/25 10:00 UNV Patient Own Medication 1 tab BID PO 02/02/25 10:00 UNV Patient Own Medication 1 tab DAILY PO 02/02/25 10:00 Patient Own Medication 1 tab TID PO 02/02/25 14:00 UNV Patient Own Medication 1 tab DAILY PO 02/02/25 10:00 Azithromycin 250 ml @ 125 mls/hr DAILY IV 02/02/25 10:00 Amlodipine Besylate (Norvasc Tablet) 10 mg DAILY PO 02/03/25 10:00 Folic Acid 1 mg DAILY PO 02/03/25 10:00 Magnesium Oxide (Mag-Ox Tablet) 400 mg TID PO 02/02/25 14:00 Review of Systems Constitutional: No: Fever, Chills, Sweats, Weakness, Malaise, Other Eyes: No: Pain, Vision change, Conjunctivae inflammation, Eyelid inflammation, Other, Redness ENT: No: Ear pain, Ear discharge, Nose pain, Nose discharge, Nose congestion, Mouth pain, Mouth swelling, Throat pain, Throat swelling, Other Respiratory: No: Cough, Dry, Shortness of breath, SOB with excertion, Wheezing, Hemoptysis, Pleuritic Pain, Sputum, Wheezing, Other Cardiovascular: No: Chest Pain, Palpitations, Orthopnea, Paroxysmal Noc. Dyspnea, Edema, Lt Headedness, Other Gastrointestinal: No: Nausea, Vomiting, Abdominal Pain, Diarrhea, Constipation, Melena, Hematochezia, Other Genitourinary: No Dysuria, No Frequency, No Incontinence; Hematuria; No Retention, No Other Musculoskeletal: No: other, neck pain, shoulder pain, arm pain, back pain, hand pain, leg pain, foot pain Skin: No: Rash, Lesions, Jaundice, Bruising, Other Neurological: No: Weakness, Numbness, Incoordination, Change in speech, Confusion, Seizures, Other Allergies: Coded Allergies: Diphenhydramine (Verified Allergy, Unknown, 02/02/25) Medications Current Medications Medications Dose Ordered Sig/Bebo Route Start Time Stop Time Status Last Admin Dose Admin Sodium Chloride 10 ml Q8HR IV 02/02/25 14:00 UNV Acetaminophen/ Hydrocodone Bitart 1 tab Q4HP PRN PO 02/02/25 07:00 UNV Ondansetron HCl 4 mg Q4HP PRN IV 02/02/25 07:00 UNV Docusate Sodium 100 mg BIDPRN PRN PO 02/02/25 07:00 UNV Acetaminophen 650 mg Q6HP PRN PO 02/02/25 07:00 UNV Nitroglycerin 0.4 mg Q5MINP PRN SL 02/02/25 07:00 UNV Morphine Sulfate 2 mg Q30M PRN IV 02/02/25 07:00 UNV Heparin Sodium/ Dextrose 250 ml @ 6.96 mls/hr Q24H IV 02/02/25 07:45 UNV Vital Signs Vital Signs Date Time Temp Pulse Resp B/P (MAP) Pulse Ox O2 Delivery O2 Flow Rate FiO2 02/02/25 10:29 110 118/62 95 Facial BiPAP Mask 60 02/02/25 10:01 26 02/02/25 07:59 98.3 98.3 02/02/25 07:05 60.0 Physical Exam Vital Signs Date Time Temp Pulse Resp B/P (MAP) Pulse Ox O2 Delivery O2 Flow Rate FiO2 02/02/25 07:05 104 33 93 60.0 100 02/02/25 06:11 127/69 Facial BiPAP Mask 02/02/25 04:40 99.1 99.1 General Appearance: Alert, Oriented X3, Cooperative, severe distress HEENT: Atraumatic, PERRLA Respiratory: Other (rales and rhonchi throughout) Cardiovascular: Normal S1, Normal S2, Other (tachycardia) Abdominal: Normal bowel sounds, Soft, No tenderness Extremities: No clubbing, No cyanosis, No edema, Normal pulses Skin: No rashes, No breakdown, No significant lesion Neuro: Other (short of breath with talking) Psych/Mental Status: Mental status NL Labs/Diagnostic Data Labs Test 02/02/25 08:54 02/02/25 08:14 02/02/25 08:10 02/02/25 06:31 Range/Units Urine Color Red H Yellow Urine Clarity Ex.turbid Clear Urine pH 8.5 5.0-9.0 Urine Specific [place] 1.049 H 1.001-1.035 Urine Protein 4+ H Negative Urine Ketones Negative Negative Urine Blood 3+ H Negative /uL Urine Nitrite Negative Negative Urine Bilirubin Negative Negative Urine Urobilinogen Normal Negative mg/dL Urine Leukocyte Esterase 3+ Negative /uL Urine RBC 6923 0 - 4 /hpf Urine Microscopic WBC 521 H 0-5 /HPF Urine Squamous Epithelial Cells None seen <5 /hpf Urine Bacteria None seen None Seen /hpf Urine Glucose Trace Normal mg/dL Troponin I High Sensitivity 2623 *H </=34 ng/L Blood Gas Specimen Type Arterial Blood Gas Sample Site Left radial Blood Gas Patient Temperature 37.0 Arterial Blood Date Drawn [id number] Arterial Blood pH 7.488 H 7.350-7.450 Arterial Blood Partial Pressure CO2 24.6 L 32.0-45.0 mmHg Arterial Blood Partial Pressure O2 56.7 L 83.0-108.0 mmHg Arterial Blood HCO3 18.2 L 21.0-28.0 mmol/L Arterial Blood Oxygen Saturation 88.6 L 94.0-98.0 % Arterial Blood Base Excess -4.1 L -2.0-3.0 mmol/L Arterial Blood Oxyhemoglobin 87.6 L 94.0-98.0 % Arterial Blood Carboxyhemoglobin 0.9 0.5-1.5 % Arterial Blood Methemoglobin 0.2 0.0-1.5 % Mic Test Yes Blood Gas Total Hemoglobin 9.40 L 12.0-16.0 g/dL Blood Gas Liter Flow 60.00 Blood Gas Modality High flow FiO2 % 100.0 Blood Gas Set Respiration Rate 12.0 Blood Gas Spontaneous Tidal Volume 540 Blood Gas EPAP 6 Blood Gas IPAP 16 Blood Gas Comments I-time 0.90 sec. Test 02/02/25 05:00 Range/Units White Blood Count 8.2 4.4-10.8 10^3/uL Red Blood Count 3.58 L 4.0-5.20 10^6/uL Hemoglobin 9.0 L 12.2-16.2 g/dL Hematocrit 28.8 L 36.0-46.0 % Mean Corpuscular Volume 80.3 80.0-100.0 fL Mean Corpuscular Hemoglobin 25.2 L 28.0-32.0 pg Mean Corpuscular Hemoglobin Concent 31.4 L 32.0-36.0 g/dL Red Cell Distribution Width 18.5 H 11.8-14.3 % Platelet Count 131 L 140-450 10^3/uL Mean Platelet Volume 7.9 6.9-10.8 fL Neutrophils (%) (Auto) 86.7 H 37.0-80.0 % Lymphocytes (%) (Auto) 5.5 L 10.0-50.0 % Monocytes (%) (Auto) 7.5 0.0-12.0 % Eosinophils (%) (Auto) 0.0 0.0-7.0 % Basophils (%) (Auto) 0.3 0.0-2.0 % Neutrophils # (Auto) 7.1 1.6-8.6 10 ^3/uL Lymphocytes # (Auto) 0.4 0.4-5.4 10 ^3/uL Monocytes # (Auto) 0.6 0-1.3 10 ^3/uL Eosinophils # (Auto) 0 0-0.8 10 ^3/uL Basophils # (Auto) 0 0-0.2 10 ^3/uL Nucleated Red Blood Cells 0.3 % Prothrombin Time 24.1 H 9.3-11.8 sec Prothrombin Time INR 2.49 H 0.9-1.15 Activated Partial Thromboplast Time 35.9 H 24.5-34.5 SEC Sodium Level 143 136-145 mmol/L Potassium Level 4.4 3.5-5.1 mmol/L Chloride Level 113 H 98-107 mmol/L Carbon Dioxide Level 18 L 20-31 mmol/L Anion Gap 12 5-15 Blood Urea Nitrogen 26 H 9-23 mg/dL Creatinine 1.42 H 0.550-1.02 mg/dL Glomerular Filtration Rate Calc 36 >90 mL/min BUN/Creatinine Ratio 18.3 10.0-20.0 Serum Glucose 151 H 74-106 mg/dL Hemoglobin A1c 5.9 H <5.7 % A1C Calcium Level 9.1 8.7-10.4 mg/dL Magnesium Level 2.0 1.6-2.6 mg/dL Total Bilirubin 0.5 0.2-1.0 mg/dL Aspartate Amino Transferase (AST) 76 H 13-40 U/L Alanine Aminotransferase (ALT) 95 H 7-40 U/L Alkaline Phosphatase 87 46-116 U/L B-Type Natriuretic Peptide 1447.37 0-100 pg/mL Total Protein 6.0 5.7-8.2 g/dL Albumin 3.8 3.2-4.8 g/dL Triglycerides Level 67 < 150 mg/dL Cholesterol Level 139 < 200 mg/dL LDL Cholesterol 37 < 100 mg/dL HDL Cholesterol 83 H 40-59 mg/dL Assessment Hematuria History of recurrent UTIs Plan/Recommendation CT scan abdomen and pelvis Considering outpatient embolization of inferior vesical artery for controlling hemorrhagic cystitis vs. irradation cystitis Plan discussed with: Patient, Other SYEDA RUSSELL MD Feb 02, 2025 11:26
[2025-02-02] MEDS: cefTRIAXone 1GM/50ML D5W 50 ML IV SCH (11:50)
[2025-02-02] MEDS: AMIODARONE HCL 200 MG TAB PO SCH (11:51)
[2025-02-02] MEDS: PANTOPRAZOLE 40 MG TAB PO SCH (11:51)
[2025-02-02] MEDS: VALSARTAN 80 MG TAB PO SCH (11:51)
[2025-02-02] MEDS: ALLOPURINOL 100 MG TAB PO SCH (11:53)
--- NOTE | 2025-02-02 12:08 | DVH ---
US CHEST ULTRASOUND, HISTORY: EVAL FOR PLEURAL EFFUSION COMPARISON(S): None TECHNICAL DATA: Transverse and longitudinal images are obtained of the chest. FINDING: IMPRESSION(S): There is a small left pleural effusion. Trace right pleural effusion.
[2025-02-02] MEDS: AZITHROMYCIN 500MG/ 250ML 250 ML IV SCH (12:30)
--- NOTE | 2025-02-02 13:38 | DVHPN2 ---
Reviewed: Care Plan, H&P, Labs, Medications, Previous Orders, Radiology Changes from previous H/P or p: No Changes Eyes: No Pain, No Vision change, No Conjunctivae inflammation, No Eyelid inflammation, No Other, No Redness ENT: No Ear pain, No Ear discharge, No Nose pain, No Nose discharge, No Nose congestion, No Mouth pain, No Mouth swelling, No Throat pain, No Throat swelling, No Other Cardiovascular: No Chest Pain, No Palpitations, No Orthopnea, No Paroxysmal Noc. Dyspnea, No Edema, No Lt Headedness, No Other Respiratory: No Cough, No Dry, No Shortness of breath, No SOB with excertion, No Wheezing, No Hemoptysis, No Pleuritic Pain, No Sputum, No Other Gastrointestinal: No Nausea, No Vomiting, No Abdominal Pain, No Diarrhea, No Constipation, No Melena, No Hematochezia, No Other Genitourinary: No Dysuria, No Frequency, No Incontinence; Hematuria; No Retention, No Other Musculoskeletal: No other, No neck pain, No shoulder pain, No arm pain, No back pain, No hand pain, No leg pain, No foot pain Skin: No Rash, No Lesions, No Jaundice, No Bruising, No Other Objective Vitals Vital Signs Date Time Temp Pulse Resp B/P (MAP) Pulse Ox O2 Delivery O2 Flow Rate FiO2 02/02/25 13:05 85 02/02/25 11:51 128/78 02/02/25 11:43 97 Facial BiPAP Mask 60 02/02/25 10:01 26 02/02/25 07:59 98.3 98.3 02/02/25 07:05 60.0 Medications Current Medications Medications Dose Ordered Sig/Bebo Route Start Time Stop Time Status Last Admin Dose Admin Sodium Chloride 10 ml Q8HR IV 02/02/25 14:00 Acetaminophen/ Hydrocodone Bitart 1 tab Q4HP PRN PO 02/02/25 07:00 Ondansetron HCl 4 mg Q4HP PRN IV 02/02/25 07:00 Docusate Sodium 100 mg BIDPRN PRN PO 02/02/25 07:00 Acetaminophen 650 mg Q6HP PRN PO 02/02/25 07:00 Nitroglycerin 0.4 mg Q5MINP PRN SL 02/02/25 07:00 Morphine Sulfate 2 mg Q30M PRN IV 02/02/25 07:00 Heparin Sodium/ Dextrose 250 ml @ 7 mls/hr Q24H IV 02/02/25 07:45 02/02/25 09:24 7 MLS/HR Ceftriaxone Sodium 50 ml @ 100 mls/hr DAILY@09 IV 02/02/25 09:00 02/02/25 11:50 100 MLS/HR Allopurinol 100 mg DAILY PO 02/02/25 10:00 02/02/25 11:53 100 MG Amiodarone HCl 200 mg BID PO 02/02/25 10:00 02/02/25 11:51 200 MG Nitroglycerin 1 patch DAILY TD 02/02/25 10:00 Pantoprazole Sodium 40 mg DAILY PO 02/02/25 10:00 02/02/25 11:51 40 MG Valsartan 80 mg DAILY PO 02/02/25 10:00 02/02/25 11:51 80 MG Patient Own Medication 1 tab DAILY PO 02/02/25 10:00 UNV Patient Own Medication 1 tab BID PO 02/02/25 10:00 UNV Patient Own Medication 1 tab DAILY PO 02/02/25 10:00 Patient Own Medication 1 tab TID PO 02/02/25 14:00 UNV Patient Own Medication 1 tab DAILY PO 02/02/25 10:00 Azithromycin 250 ml @ 125 mls/hr DAILY IV 02/02/25 10:00 02/02/25 12:30 125 MLS/HR Amlodipine Besylate 10 mg DAILY PO 02/03/25 10:00 Folic Acid 1 mg DAILY PO 02/03/25 10:00 Magnesium Oxide 400 mg TID PO 02/02/25 14:00 Laboratory Results Laboratory Tests 02/02/25 05:00 Chemistry Test 02/02/25 05:00 Albumin 3.8 g/dL (3.2-4.8) Calcium Level 9.1 mg/dL (8.7-10.4) Magnesium Level 2.0 mg/dL (1.6-2.6) Total Protein 6.0 g/dL (5.7-8.2) Coagulation Test 02/02/25 05:00 02/02/25 08:14 Prothrombin Time 24.1 sec (9.3-11.8) H Prothrombin Time INR 2.49 (0.9-1.15) H Activated Partial Thromboplast Time 35.9 SEC (24.5-34.5) H D-Dimer, Quantitative 0.79 mg/L FEU (0.0-0.49) H Lipid panel Test 02/02/25 05:00 Cholesterol Level 139 mg/dL (< 200) HDL Cholesterol 83 mg/dL (40-59) H Triglycerides Level 67 mg/dL (< 150) Cardiac Markers Test 02/02/25 05:00 B-Type Natriuretic Peptide 1447.37 pg/mL (0-100) LFT Test 02/02/25 05:00 Alanine Aminotransferase (ALT) 95 U/L (7-40) H Alkaline Phosphatase 87 U/L (46-116) Aspartate Amino Transferase (AST) 76 U/L (13-40) H Total Bilirubin 0.5 mg/dL (0.2-1.0) HgA1c, TSH Test 02/02/25 05:00 Hemoglobin A1c 5.9 % A1C (<5.7) H Thyroid Stimulating Hormone (TSH) 0.49 uIU/mL (0.55-4.78) L Urinalysis Test 02/02/25 08:54 Urine Color Red (Yellow) H Urine Clarity Ex.turbid (Clear) Urine pH 8.5 (5.0-9.0) Urine Specific [place] 1.049 (1.001-1.035) Urine Protein 4+ (Negative) H Urine Ketones Negative (Negative) Urine Blood 3+ /uL (Negative) H Urine Nitrite Negative (Negative) Urine Bilirubin Negative (Negative) Urine Urobilinogen Normal mg/dL (Negative) Urine Leukocyte Esterase 3+ /uL (Negative) Urine RBC 6923 /hpf (0 - 4) Urine Microscopic WBC 521 /HPF (0-5) H Urine Squamous Epithelial Cells None seen /hpf (<5) Urine Bacteria None seen /hpf (None Seen) Urine Glucose Trace mg/dL (Normal) Blood Gas Results Test 02/02/25 06:31 02/02/25 08:10 Arterial Blood pH 7.476 (7.350-7.450) 7.488 (7.350-7.450) FiO2 % 100.0 100.0 Labs and/or images reviewed: Labs reviewed by me, Image(s) reviewed by me Assessment/Plan Assessment/Plan Transferred from [facility] NSTEMI consult by equip maint eng appreciated Coronary artery disease status post triple-vessel bypass CABG Acute on chronic decompensated HFrEF, NYHA class III Atrial fibrillation (on Coumadin and amiodarone) History myocardial infarction Hypertension Dyslipidemia Acute hypoxic respiratory failure Pneumonia Acute kidney injury Hematuria CVA History of ovarian cancer, now in remission status post hysterectomy Acute urinary tract infection: Blood cultures urine cultures Rocephin Hematuria, urology consult by Dr. Mims appreciated considering outpatient embolization of inferior vesical artery Time spent 70 minutes Plan discussed with: Patient Date of Service: Feb 02, 2025 Billing Provider: RACHELLE STREET MD Common Visit Codes: [id number] CARE 30-[address] MD Feb 02, 2025 13:38
[2025-02-02] MEDS: SODIUM CHLOR 0.9% PF (SALINE LOCK) 10ML VIAL/SYR IV SCH (14:00)
[2025-02-02] MEDS ORDERED: PATIENTS OWN MEDICATION (Magnesium Oxide 1 TAB) PO SCH (14:00)
[2025-02-02 14:29] LABS: Hematocrit 27.9 % (36.0-46.0); Hemoglobin 8.7 g/dL (12.2-16.2)
--- NOTE | 2025-02-02 16:04 | DVH ---
Exam: CT CT AB PEL WO CON-NO ORAL OR IV History: Hematuria Comparison Study: None available TECHNIQUE: Multidetector CT of the abdomen and pelvis was performed from lung bases to pubic symphysi s. Imaging was performed without IV contrast. Axial, coronal, and sagittal multiplanar reformats were obtained from the axial data set by the technologist. RADIATION DOSE: DLP 321.99 mGy.cm; CTDI vol 6.08 mGy. Findings: Lungs: Right middle and bilateral lower lobe solid and ground-glass opacities. Heart: Cardiomegaly. Biatrial enlargement. Liver: Unremarkable. Gallbladder: Cholecystectomy. Spleen: Unremarkable Pancreas: Unremarkable Adrenals: Unremarkable Kidneys: Mild residual IV contrast in the urinary collecting system. GI tract: Unremarkable : The urinary bladder is decompressed via Peterson catheter. Vasculature: Severe aortoiliac atherosclerosis. Lymphadenopathy: Absent Peritoneum: No ascites Musculoskeletal: Mild multilevel degenerative changes of the thoracolumbar spine. Soft tissues: Unremarkable Impression: 1. No acute abdominopelvic abnormalities. 2. Mild residual IV contrast in the urinary collecting system. No definite abnormality. 3. The urinary bladder is decompressed via Pteerson catheter. 4. Right middle and bilateral lower lobe multifocal pneumonia. 5. Cardiomegaly with biatrial enlargement.
[2025-02-02] MEDS: MAGNESIUM OXIDE 400 MG TAB PO SCH (16:58)
[2025-02-02] MEDS: FUROSEMIDE 40 MG/4 ML VIAL IV SCH (18:15)
[2025-02-03] VITALS (21 sets, daily range): BP systolic 87–135; BP diastolic 45–59; PULSE 75–98; RESP 12–25; TEMP 97.8–99.5; O2SAT 62–99
[2025-02-03 07:08] LABS: Basophils # (auto) 0 10 ^3/uL (0-0.2); Eosinophils # (auto) 0 10 ^3/uL (0-0.8); Hemoglobin 8.1 g/dL (12.2-16.2); Mean Corpuscular Hemoglobin 25.7 pg (28.0-32.0); Nucleated Red Blood Cells % 0.2 %; Platelet Count (auto) 118 10^3/uL (140-450); White Blood Cell 7.5 10^3/uL (4.4-10.8)
[2025-02-03 07:11] LABS: Basophils % (auto) 0.1 % (0.0-2.0); Hematocrit 25.1 % (36.0-46.0); Lymphocytes # (auto) 0.6 10 ^3/uL (0.4-5.4); Lymphocytes % (auto) 8.1 % (10.0-50.0); Mean Corpuscular Hgb Conc. 32.2 g/dL (32.0-36.0); Mean Corpuscular Volume 79.7 fL (80.0-100.0); Monocytes # (auto) 0.7 10 ^3/uL (0-1.3); Neutrophils # (auto) 6.2 10 ^3/uL (1.6-8.6); Neutrophils % (auto) 82.8 % (37.0-80.0); Red Blood Cells 3.15 10^6/uL (4.0-5.20); Red Cell Distribution Width 18.8 % (11.8-14.3)
[2025-02-03 07:30] LABS: Alkaline Phosphatase 65 U/L (46-116); Anion Gap 10 (5-15); BUN/Creatinine Ratio 18.3 (10.0-20.0); Blood Urea Nitrogen 22 mg/dL (9-23); Calcium 8.8 mg/dL (8.7-10.4); Carbon Dioxide 23 mmol/L (20-31); Potassium 3.6 mmol/L (3.5-5.1); Sodium 142 mmol/L (136-145)
[2025-02-03 07:31] LABS: Albumin 3.4 g/dL (3.2-4.8); Bilirubin, Total 0.8 mg/dL (0.2-1.0)
[2025-02-03 07:32] LABS: Alanine Aminotransferase 150 U/L (7-40); Aspartate Aminotransferase 129 U/L (13-40); Chloride 109 mmol/L (98-107); Glucose 107 mg/dL (74-106); Total Protein 5.5 g/dL (5.7-8.2)
[2025-02-03] MEDS: FOLIC ACID 1 MG TAB PO SCH (10:36)
[2025-02-03] MEDS: amLODIPine BESYLATE 5 MG TAB PO SCH (10:38)
--- NOTE | 2025-02-03 11:14 | DVHPN2 ---
Reviewed: Care Plan, H&P, Labs, Medications, Previous Orders, Radiology Changes from previous H/P or p: No Changes Eyes: No Pain, No Vision change, No Conjunctivae inflammation, No Eyelid inflammation, No Other, No Redness ENT: No Ear pain, No Ear discharge, No Nose pain, No Nose discharge, No Nose congestion, No Mouth pain, No Mouth swelling, No Throat pain, No Throat swelling, No Other Cardiovascular: No Chest Pain, No Palpitations, No Orthopnea, No Paroxysmal Noc. Dyspnea, No Edema, No Lt Headedness, No Other Respiratory: No Cough, No Dry, No Shortness of breath, No SOB with excertion, No Wheezing, No Hemoptysis, No Pleuritic Pain, No Sputum, No Other Gastrointestinal: No Nausea, No Vomiting, No Abdominal Pain, No Diarrhea, No Constipation, No Melena, No Hematochezia, No Other Genitourinary: No Dysuria, No Frequency, No Incontinence; Hematuria; No Retention, No Other Musculoskeletal: No other, No neck pain, No shoulder pain, No arm pain, No back pain, No hand pain, No leg pain, No foot pain Skin: No Rash, No Lesions, No Jaundice, No Bruising, No Other Objective Vitals Vital Signs Date Time Temp Pulse Resp B/P (MAP) Pulse Ox O2 Delivery O2 Flow Rate FiO2 02/03/25 11:00 98.1 92 20 121/59 (79) 99 98.1 02/03/25 10:07 40.0 50 02/03/25 08:40 Facial BiPAP Mask Intake/Output Intake and Output 02/03/25 07:00 Intake Total 300 ml Output Total 1400 ml Balance -1100 ml Intake IV Total 300 ml Output Urine Total 1400 ml Medications Current Medications Medications Dose Ordered Sig/Bebo Route Start Time Stop Time Status Last Admin Dose Admin Sodium Chloride 10 ml Q8HR IV 02/02/25 14:00 02/03/25 06:11 10 ML Acetaminophen/ Hydrocodone Bitart 1 tab Q4HP PRN PO 02/02/25 07:00 Ondansetron HCl 4 mg Q4HP PRN IV 02/02/25 07:00 Docusate Sodium 100 mg BIDPRN PRN PO 02/02/25 07:00 Acetaminophen 650 mg Q6HP PRN PO 02/02/25 07:00 Nitroglycerin 0.4 mg Q5MINP PRN SL 02/02/25 07:00 Morphine Sulfate 2 mg Q30M PRN IV 02/02/25 07:00 Ceftriaxone Sodium 50 ml @ 100 mls/hr DAILY@09 IV 02/02/25 09:00 02/03/25 10:35 100 MLS/HR Allopurinol 100 mg DAILY PO 02/02/25 10:00 02/03/25 10:36 100 MG Amiodarone HCl 200 mg BID PO 02/02/25 10:00 02/03/25 10:36 200 MG Nitroglycerin 1 patch DAILY TD 02/02/25 10:00 Pantoprazole Sodium 40 mg DAILY PO 02/02/25 10:00 02/03/25 10:35 40 MG Valsartan 80 mg DAILY PO 02/02/25 10:00 02/03/25 10:34 80 MG Patient Own Medication 1 tab DAILY PO 02/02/25 10:00 UNV Patient Own Medication 1 tab BID PO 02/02/25 10:00 UNV Patient Own Medication 1 tab DAILY PO 02/02/25 10:00 Patient Own Medication 1 tab TID PO 02/02/25 14:00 UNV Patient Own Medication 1 tab DAILY PO 02/02/25 10:00 Azithromycin 250 ml @ 125 mls/hr DAILY IV 02/02/25 10:00 02/02/25 12:30 125 MLS/HR Amlodipine Besylate 10 mg DAILY PO 02/03/25 10:00 02/03/25 10:38 10 MG Folic Acid 1 mg DAILY PO 02/03/25 10:00 02/03/25 10:36 1 MG Magnesium Oxide 400 mg TID PO 02/02/25 14:00 02/03/25 06:19 400 MG Furosemide 40 mg BIDD IV 02/02/25 18:00 02/03/25 06:20 40 MG Laboratory Results Laboratory Tests 02/03/25 06:19 Chemistry Test 02/03/25 06:19 Albumin 3.4 g/dL (3.2-4.8) Calcium Level 8.8 mg/dL (8.7-10.4) Total Protein 5.5 g/dL (5.7-8.2) L LFT Test 02/03/25 06:19 Alanine Aminotransferase (ALT) 150 U/L (7-40) H Alkaline Phosphatase 65 U/L (46-116) Aspartate Amino Transferase (AST) 129 U/L (13-40) H Total Bilirubin 0.8 mg/dL (0.2-1.0) Urinalysis Test 02/02/25 08:54 Urine Color Red (Yellow) H Urine Clarity Ex.turbid (Clear) Urine pH 8.5 (5.0-9.0) Urine Specific [place] 1.049 (1.001-1.035) Urine Protein 4+ (Negative) H Urine Ketones Negative (Negative) Urine Blood 3+ /uL (Negative) H Urine Nitrite Negative (Negative) Urine Bilirubin Negative (Negative) Urine Urobilinogen Normal mg/dL (Negative) Urine Leukocyte Esterase 3+ /uL (Negative) Urine RBC 6923 /hpf (0 - 4) Urine Microscopic WBC 521 /HPF (0-5) H Urine Squamous Epithelial Cells None seen /hpf (<5) Urine Bacteria None seen /hpf (None Seen) Urine Glucose Trace mg/dL (Normal) Microbiology Microbiology Date/Time Source Procedure Growth Status 02/02/25 08:54 Urine - [place] Urine Culture - Preliminary Resulted Labs and/or images reviewed: Labs reviewed by me, Image(s) reviewed by me Assessment/Plan Assessment/Plan Transferred from [facility] NSTEMI consult by cellophane tester appreciated Coronary artery disease status post triple-vessel bypass CABG Acute on chronic decompensated HFrEF, NYHA class III Atrial fibrillation (on Coumadin and amiodarone) History myocardial infarction Hypertension Dyslipidemia Acute hypoxic respiratory failure Pneumonia Acute kidney injury Hematuria CVA History of ovarian cancer, now in remission status post hysterectomy Acute urinary tract infection: Urine cultures negative, continue Rocephin Hematuria, urology consult by Dr. Yoon appreciated considering outpatient embolization of inferior vesical artery Time spent 70 minutes Plan discussed with: Patient My Orders Orders - RACHELLE STREET MD Procedure Category Date Status Time Blood Culture GEETHA 02/02/25 In Process 13:35 Date of Service: Feb 03, 2025 Billing Provider: RACHELLE STREET MD Common Visit Codes: [id number] CARE 30-[address] MD Feb 03, 2025 11:14
--- NOTE | 2025-02-03 15:18 | DVH ---
EXAM: NM NM VQ SCAN HISTORY: R/O PULMONARY EMBOLISM COMPARISON: Chest radiograph from 02/02/2025 TECHNIQUE: Following the administration of the ventilation agent, standard projections of the lungs were acquired. The same images were repeated after administration of the perfusion agent. Findings: Ventilation images demonstrate homogenous distribution of radiotracer throughout both lungs. Perfusion images demonstrate homogeneous distribution of radiotracer throughout both lungs. No periph eral wedge-shaped moderate or large subsegmental or segmental mismatched perfusion defects to suggest acute pulmonary embolism. Impression: 1. Based on PIOPED criteria, low probability for pulmonary embolism.
--- NOTE | 2025-02-03 17:12 | DVHPN2 ---
Progress Note - Dictate Date Seen: Feb 03, 2025 Has the PT tested + for MRSA If YES, has PT been informed?: No Medical Necessity Reason Pt with a Central, PICC or Fol: Yes The following are medically ne: Peterson Catheter Medical Necessity Reason Gross hematuria with Peterson catheter in place Subjective No new complaint vital signs Vital Sign Date Time Temp Pulse Resp B/P (MAP) Pulse Ox O2 Delivery O2 Flow Rate FiO2 02/03/25 15:17 98.0 82 20 113/47 (69) 94 98.0 02/03/25 15:17 Oxymizer 4 N/A Total Intake and Output 02/02/25 02/02/25 02/03/25 15:00 23:00 07:00 Intake Total 300 ml Output Total 1400 ml Balance -1100 ml medications Current Medications Medications Dose Ordered Sig/Bebo Route Start Time Stop Time Status Last Admin Dose Admin Sodium Chloride 10 ml Q8HR IV 02/02/25 14:00 02/03/25 14:00 10 ML Acetaminophen/ Hydrocodone Bitart 1 tab Q4HP PRN PO 02/02/25 07:00 Ondansetron HCl 4 mg Q4HP PRN IV 02/02/25 07:00 Docusate Sodium 100 mg BIDPRN PRN PO 02/02/25 07:00 Acetaminophen 650 mg Q6HP PRN PO 02/02/25 07:00 Nitroglycerin 0.4 mg Q5MINP PRN SL 02/02/25 07:00 Morphine Sulfate 2 mg Q30M PRN IV 02/02/25 07:00 Ceftriaxone Sodium 50 ml @ 100 mls/hr DAILY@09 IV 02/02/25 09:00 02/03/25 10:35 100 MLS/HR Allopurinol 100 mg DAILY PO 02/02/25 10:00 02/03/25 10:36 100 MG Amiodarone HCl 200 mg BID PO 02/02/25 10:00 02/03/25 10:36 200 MG Nitroglycerin 1 patch DAILY TD 02/02/25 10:00 02/03/25 12:12 1 PATCH Pantoprazole Sodium 40 mg DAILY PO 02/02/25 10:00 02/03/25 10:35 40 MG Valsartan 80 mg DAILY PO 02/02/25 10:00 02/03/25 10:34 80 MG Patient Own Medication 1 tab DAILY PO 02/02/25 10:00 UNV Patient Own Medication 1 tab BID PO 02/02/25 10:00 UNV Patient Own Medication 1 tab DAILY PO 02/02/25 10:00 Patient Own Medication 1 tab TID PO 02/02/25 14:00 UNV Patient Own Medication 1 tab DAILY PO 02/02/25 10:00 Azithromycin 250 ml @ 125 mls/hr DAILY IV 02/02/25 10:00 02/03/25 11:31 125 MLS/HR Amlodipine Besylate 10 mg DAILY PO 02/03/25 10:00 02/03/25 10:38 10 MG Folic Acid 1 mg DAILY PO 02/03/25 10:00 02/03/25 10:36 1 MG Magnesium Oxide 400 mg TID PO 02/02/25 14:00 02/03/25 15:55 400 MG Furosemide 40 mg BIDD IV 02/02/25 18:00 02/03/25 06:20 40 MG objective Peterson catheter in place. Urine is clearing up PATIENT: ZANA WRIGHT ACCT: [id number] UNIT: [id number] : 1940 LOC: OVERFLOW ROOM / BED: [address] [place] [address] AGE / SEX: 84 / F ADM STATUS: ADM IN SERVICE 26 ORDERING PHYSICIAN: SYEDA RUSSELL MD PROCEDURE(s): ABPL - CT AB PEL WO CON-NO ORAL OR IV REASON: Hematuria ORDER NUMBER(s): [id number], ACCESSION NUMBER(s): [id number] Exam: CT CT AB PEL WO CON-NO ORAL OR IV History: Hematuria Comparison Study: None available TECHNIQUE: Multidetector CT of the abdomen and pelvis was performed from lung bases to pubic symphysis. Imaging was performed without IV contrast. Axial, coronal, and sagittal multiplanar reformats were obtained from the axial data set by the technologist. RADIATION DOSE: DLP 321.99 mGy.cm; CTDI vol 6.08 mGy. Findings: Lungs: Right middle and bilateral lower lobe solid and ground-glass opacities. Heart: Cardiomegaly. Biatrial enlargement. Liver: Unremarkable. Gallbladder: Cholecystectomy. Spleen: Unremarkable Pancreas: Unremarkable Adrenals: Unremarkable Kidneys: Mild residual IV contrast in the urinary collecting system. GI tract: Unremarkable : The urinary bladder is decompressed via Peterson catheter. Vasculature: Severe aortoiliac atherosclerosis. Lymphadenopathy: Absent Peritoneum: No ascites Musculoskeletal: Mild multilevel degenerative changes of the thoracolumbar spine. Soft tissues: Unremarkable Impression: 1. No acute abdominopelvic abnormalities. 2. Mild residual IV contrast in the urinary collecting system. No definite abnormality. 3. The urinary bladder is decompressed via Peterson catheter. 4. Right middle and bilateral lower lobe multifocal pneumonia. 5. Cardiomegaly with biatrial enlargement. ATED BY: OPAL ALEXANDER DO DICTATED DATE/TIME: 02/02/25 1602 SIGNED BY: OPAL ALEXANDER DO SIGNED DATE/TIME: 02/02/25 1602 CC: laboratory and microbiology Laboratory Tests 02/03/25 06:19 Test 02/03/25 06:19 Range/Units Serum Glucose 107 H 74-106 mg/dL Assessment/Plan Hematuria History of recurrent UTIs Possible irradiation cystitis/vaginitis Please discharge patient with a indwelling catheter and have patient follow up for outpatient cystoscopy in the clinic Plan discussed with: Patient, Other SYEDA RUSSELL MD Feb 03, 2025 17:12
--- NOTE | 2025-02-03 19:36 | DVHPN2 ---
Consult Progress Note Subjective Other Systems: *Actual time of assessment 1505 Patient now on 4 L Oxymizer at time of assessment Objective vital signs Vital Sign Date Time Temp Pulse Resp B/P (MAP) Pulse Ox O2 Delivery O2 Flow Rate FiO2 02/03/25 18:00 117/54 02/03/25 18:00 99.5 87 23 93 99.5 02/03/25 15:17 Oxymizer 4 N/A Total Intake and Output 02/02/25 02/02/25 02/03/25 15:00 23:00 07:00 Intake Total 300 ml Output Total 1400 ml Balance -1100 ml medications Current Medications Medications Dose Ordered Sig/Bebo Route Start Time Stop Time Status Last Admin Dose Admin Sodium Chloride 10 ml Q8HR IV 02/02/25 14:00 02/03/25 14:00 10 ML Acetaminophen/ Hydrocodone Bitart 1 tab Q4HP PRN PO 02/02/25 07:00 Ondansetron HCl 4 mg Q4HP PRN IV 02/02/25 07:00 Docusate Sodium 100 mg BIDPRN PRN PO 02/02/25 07:00 Acetaminophen 650 mg Q6HP PRN PO 02/02/25 07:00 Nitroglycerin 0.4 mg Q5MINP PRN SL 02/02/25 07:00 Morphine Sulfate 2 mg Q30M PRN IV 02/02/25 07:00 Ceftriaxone Sodium 50 ml @ 100 mls/hr DAILY@09 IV 02/02/25 09:00 02/03/25 10:35 100 MLS/HR Allopurinol 100 mg DAILY PO 02/02/25 10:00 02/03/25 10:36 100 MG Amiodarone HCl 200 mg BID PO 02/02/25 10:00 02/03/25 10:36 200 MG Nitroglycerin 1 patch DAILY TD 02/02/25 10:00 02/03/25 12:12 1 PATCH Pantoprazole Sodium 40 mg DAILY PO 02/02/25 10:00 02/03/25 10:35 40 MG Valsartan 80 mg DAILY PO 02/02/25 10:00 02/03/25 10:34 80 MG Patient Own Medication 1 tab DAILY PO 02/02/25 10:00 UNV Patient Own Medication 1 tab BID PO 02/02/25 10:00 UNV Patient Own Medication 1 tab DAILY PO 02/02/25 10:00 Patient Own Medication 1 tab TID PO 02/02/25 14:00 UNV Patient Own Medication 1 tab DAILY PO 02/02/25 10:00 Azithromycin 250 ml @ 125 mls/hr DAILY IV 02/02/25 10:00 02/03/25 11:31 125 MLS/HR Amlodipine Besylate 10 mg DAILY PO 02/03/25 10:00 02/03/25 10:38 10 MG Folic Acid 1 mg DAILY PO 02/03/25 10:00 02/03/25 10:36 1 MG Magnesium Oxide 400 mg TID PO 02/02/25 14:00 02/03/25 15:55 400 MG Furosemide 40 mg BIDD IV 02/02/25 18:00 02/03/25 06:20 40 MG Examination: GENERAL:Abnormal (Generalized weakness), LUNGS:Abnormal (On Oxymizer), CVS:Normal, NEURO:Normal laboratory and microbiology Laboratory Tests 02/03/25 06:19 Test 02/03/25 06:19 Range/Units Serum Glucose 107 H 74-106 mg/dL Problem List/Assessment/Plan Problem List/Assessment/Plan NSTEMI, rule out progressive coronary artery disease Coronary artery disease status post triple-vessel bypass CABG Acute on chronic decompensated HFrEF, NYHA class III Atrial fibrillation, likely paroxysmal (on Coumadin and amiodarone) Bioprosthetic aortic valve replacement History myocardial infarction Hypertension Dyslipidemia Acute hypoxic respiratory failure Ruled out PE Pneumonia Acute kidney injury Hematuria CVA History of ovarian cancer, now in remission Plan/Recommendation (Dr. Rust): * Transthoracic echocardiogram to evaluate cardiac function * Strict intake and output, daily weights, maintain fluid restriction * [id number] VASc score: 6 points HAS-BLED: 3 points * Hold anticoagulation given severe anemia and hematuria; SCD's * Continue antiarrhythmic agent amiodarone * Hold beta-elisabeth until patient properly diuresed * D/C heparin given active hematuria, s/p PRBC * Keep hemoglobin >8.0 given hx of CAD * Diuresis as tolerated * Close Cardiac surveillance * Coronary angiogram Case discussed with Dr. Rust. The patient who presents with an elevated troponin level denies any chest pain or cardiac symptoms. Preliminary echocardiogram reviewed by . Given low EF and anterior wall hypokinesis, we will recommend for the patient undergo a coronary angiogram with left heart catheterization. We will explain the procedure in full detail with the patient and schedule her at soonest availability if she is agreeable. Thank you for allowing us to care for this patient. Please call with any questions or concerns. This medical document was created using an electronic medical record system with voice recognition software and computerized dictation system. Although this document has been carefully reviewed, there might still be some phonetic and typographical errors. Occasional wrong-word or ``sound-alike substitutions may have occurred due to the inherent limitations of voice recognition software. These areas are purely typographical due to imperfections of the software programs and do not reflect any compromise in the patient's medical care. Please read the chart carefully and recognize, using context, where these substitutions have occurred. Plan discussed with: Patient Date of Service: Feb 03, 2025 Billing Provider: NEMESIO CONSTANTINO Common Visit Codes: [id number] INP/OBS CARE(HIGH) NEMESIO CONSTANTINO Feb 03, 2025 19:36
[2025-02-04] VITALS (18 sets, daily range): BP systolic 93–138; BP diastolic 42–68; PULSE 69–98; RESP 14–22; TEMP 98.6–99.2; O2SAT 97–100
[2025-02-04 02:00] LABS: Basophils # (auto) 0 10 ^3/uL (0-0.2); Eosinophils # (auto) 0 10 ^3/uL (0-0.8); Lymphocytes # (auto) 0.6 10 ^3/uL (0.4-5.4); Monocytes # (auto) 0.5 10 ^3/uL (0-1.3); Neutrophils # (auto) 4.8 10 ^3/uL (1.6-8.6)
[2025-02-04 02:01] LABS: Basophils % (auto) 0.5 % (0.0-2.0); Hematocrit 26.8 % (36.0-46.0); Hemoglobin 8.7 g/dL (12.2-16.2); Mean Corpuscular Hemoglobin 26.1 pg (28.0-32.0); Mean Corpuscular Hgb Conc. 32.6 g/dL (32.0-36.0); Mean Corpuscular Volume 80.2 fL (80.0-100.0); Monocytes % (auto) 8.7 % (0.0-12.0); Neutrophils % (auto) 80.8 % (37.0-80.0); Nucleated Red Blood Cells % 0.1 %; Platelet Count (auto) 143 10^3/uL (140-450); Red Blood Cells 3.34 10^6/uL (4.0-5.20); Red Cell Distribution Width 18.7 % (11.8-14.3)
[2025-02-04 02:19] LABS: Chloride 107 mmol/L (98-107); Sodium 145 mmol/L (136-145)
[2025-02-04 02:20] LABS: Anion Gap 9 (5-15); Calcium 9.1 mg/dL (8.7-10.4); Carbon Dioxide 29 mmol/L (20-31)
[2025-02-04 02:21] LABS: Potassium 3.2 mmol/L (3.5-5.1)
[2025-02-04 02:25] LABS: Blood Urea Nitrogen 28 mg/dL (9-23); Glucose 93 mg/dL (74-106)
[2025-02-04] MEDS: POTASSIUM CHL 20MEQ/50ML 50 ML IV ONE (03:31)
--- NOTE | 2025-02-04 09:11 | DVHPN2 ---
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 Denies any cardiac symptoms Now on 3 L Oxymizer Objective vital signs Vital Sign Date Time Temp Pulse Resp B/P (MAP) Pulse Ox O2 Delivery O2 Flow Rate FiO2 02/04/25 06:00 72 15 135/42 (73) 100 02/04/25 04:00 98.6 98.6 02/03/25 20:00 Oxymizer 3 N/A Total Intake and Output 02/03/25 02/03/25 02/04/25 15:00 23:00 07:00 Intake Total 250 ml 150 ml Output Total 1600 ml 950 ml 450 ml Balance -1350 ml -950 ml -300 ml medications Current Medications Medications Dose Ordered Sig/Bebo Route Start Time Stop Time Status Last Admin Dose Admin Sodium Chloride 10 ml Q8HR IV 02/02/25 14:00 02/04/25 05:52 10 ML Acetaminophen/ Hydrocodone Bitart 1 tab Q4HP PRN PO 02/02/25 07:00 Ondansetron HCl 4 mg Q4HP PRN IV 02/02/25 07:00 Docusate Sodium 100 mg BIDPRN PRN PO 02/02/25 07:00 Acetaminophen 650 mg Q6HP PRN PO 02/02/25 07:00 Nitroglycerin 0.4 mg Q5MINP PRN SL 02/02/25 07:00 Morphine Sulfate 2 mg Q30M PRN IV 02/02/25 07:00 Ceftriaxone Sodium 50 ml @ 100 mls/hr DAILY@09 IV 02/02/25 09:00 02/04/25 09:02 100 MLS/HR Allopurinol 100 mg DAILY PO 02/02/25 10:00 02/03/25 10:36 100 MG Amiodarone HCl 200 mg BID PO 02/02/25 10:00 02/03/25 21:31 200 MG Nitroglycerin 1 patch DAILY TD 02/02/25 10:00 02/03/25 12:12 1 PATCH Pantoprazole Sodium 40 mg DAILY PO 02/02/25 10:00 02/03/25 10:35 40 MG Valsartan 80 mg DAILY PO 02/02/25 10:00 02/03/25 10:34 80 MG Patient Own Medication 1 tab DAILY PO 02/02/25 10:00 UNV Patient Own Medication 1 tab BID PO 02/02/25 10:00 UNV Patient Own Medication 1 tab DAILY PO 02/02/25 10:00 Patient Own Medication 1 tab TID PO 02/02/25 14:00 UNV Patient Own Medication 1 tab DAILY PO 02/02/25 10:00 Azithromycin 250 ml @ 125 mls/hr DAILY IV 02/02/25 10:00 02/03/25 11:31 125 MLS/HR Amlodipine Besylate 10 mg DAILY PO 02/03/25 10:00 02/03/25 10:38 10 MG Folic Acid 1 mg DAILY PO 02/03/25 10:00 02/03/25 10:36 1 MG Magnesium Oxide 400 mg TID PO 02/02/25 14:00 02/03/25 21:31 400 MG Furosemide 40 mg BIDD IV 02/02/25 18:00 02/04/25 05:52 40 MG Examination: GENERAL:Abnormal (Generalized weakness), LUNGS:Normal, CVS:Normal, NEURO:Normal laboratory and microbiology Laboratory Tests 02/04/25 01:46 Test 02/04/25 01:46 Range/Units Serum Glucose 93 74-106 mg/dL Problem List/Assessment/Plan Problem List/Assessment/Plan NSTEMI, rule out coronary artery disease Questionable coronary artery disease Acute on chronic decompensated HFrEF, NYHA class III Atrial fibrillation, likely paroxysmal (on Coumadin and amiodarone) Bioprosthetic aortic valve replacement History myocardial infarction Hypertension Dyslipidemia Acute hypoxic respiratory failure Ruled out PE Pneumonia Acute kidney injury Hematuria CVA History of ovarian cancer, now in remission Plan/Recommendation (Dr. Rust): * Transthoracic echocardiogram to evaluate cardiac function * Strict intake and output, daily weights, maintain fluid restriction * [id number] VASc score: 6 points HAS-BLED: 3 points * Hold anticoagulation given severe anemia and hematuria; SCD's * Continue antiarrhythmic agent amiodarone * Hold beta-elisabeth until patient properly diuresed; will recheck BNP in AM * Keep hemoglobin >8.0 given possible hx of CAD * Diuresis as tolerated * Close Cardiac surveillance * Coronary angiogram if patient agreeable Case discussed with Dr. Rust. The patient who presents with an elevated troponin level denies any chest pain or cardiac symptoms. The patient's daughter had initially mentioned that the patient had a triple-vessel CABG in the past. After speaking with the patient, the patient is now stating that she does not remember that procedure. She reports that her open heart surgery was for her bioprosthetic aortic valve replacement. It was unclear if the patient has any history of coronary artery disease as the patient and her daughter have provided different information. Preliminary echocardiogram reviewed by . Given low EF and anterior wall hypokinesis, we will recommend for the patient undergo a coronary angiogram with left heart catheterization. At this time, the patient would like time to think about the procedure. She is unsure if she would like to proceed with any invasive cardiac workup. The patient requests time to speak with her family before making a final decision. Thank you for allowing us to care for this patient. Please call with any questions or concerns. This medical document was created using an electronic medical record system with voice recognition software and computerized dictation system. Although this document has been carefully reviewed, there might still be some phonetic and typographical errors. Occasional wrong-word or ``sound-alike substitutions may have occurred due to the inherent limitations of voice recognition software. These areas are purely typographical due to imperfections of the software programs and do not reflect any compromise in the patient's medical care. Please read the chart carefully and recognize, using context, where these substitutions have occurred. Plan discussed with: Patient Date of Service: Feb 04, 2025 Billing Provider: NEMESIO CONSTANTINO Common Visit Codes: [id number] CARE 30-74 MIN NEMESIO CONSTANTINO Feb 04, 2025 09:11
--- NOTE | 2025-02-04 10:29 | DVHPN2 ---
Reviewed: Care Plan, H&P, Labs, Medications, Previous Orders, Radiology Changes from previous H/P or p: No Changes Eyes: No Pain, No Vision change, No Conjunctivae inflammation, No Eyelid inflammation, No Other, No Redness ENT: No Ear pain, No Ear discharge, No Nose pain, No Nose discharge, No Nose congestion, No Mouth pain, No Mouth swelling, No Throat pain, No Throat swelling, No Other Cardiovascular: No Chest Pain, No Palpitations, No Orthopnea, No Paroxysmal Noc. Dyspnea, No Edema, No Lt Headedness, No Other Respiratory: No Cough, No Dry, No Shortness of breath, No SOB with excertion, No Wheezing, No Hemoptysis, No Pleuritic Pain, No Sputum, No Other Gastrointestinal: No Nausea, No Vomiting, No Abdominal Pain, No Diarrhea, No Constipation, No Melena, No Hematochezia, No Other Genitourinary: No Dysuria, No Frequency, No Incontinence; Hematuria; No Retention, No Other Musculoskeletal: No other, No neck pain, No shoulder pain, No arm pain, No back pain, No hand pain, No leg pain, No foot pain Skin: No Rash, No Lesions, No Jaundice, No Bruising, No Other Objective Vitals Vital Signs Date Time Temp Pulse Resp B/P (MAP) Pulse Ox O2 Delivery O2 Flow Rate FiO2 02/04/25 06:00 72 15 135/42 (73) 100 02/04/25 04:00 98.6 98.6 02/03/25 20:00 Oxymizer 3 N/A Intake/Output Intake and Output 02/04/25 07:00 Intake Total 400 ml Output Total 3000 ml Balance -2600 ml Intake Oral 100 ml IV Total 300 ml Output Urine Total 3000 ml Stool Total 0 ml Medications Current Medications Medications Dose Ordered Sig/Bebo Route Start Time Stop Time Status Last Admin Dose Admin Sodium Chloride 10 ml Q8HR IV 02/02/25 14:00 02/04/25 05:52 10 ML Acetaminophen/ Hydrocodone Bitart 1 tab Q4HP PRN PO 02/02/25 07:00 Ondansetron HCl 4 mg Q4HP PRN IV 02/02/25 07:00 Docusate Sodium 100 mg BIDPRN PRN PO 02/02/25 07:00 Acetaminophen 650 mg Q6HP PRN PO 02/02/25 07:00 Nitroglycerin 0.4 mg Q5MINP PRN SL 02/02/25 07:00 Morphine Sulfate 2 mg Q30M PRN IV 02/02/25 07:00 Ceftriaxone Sodium 50 ml @ 100 mls/hr DAILY@09 IV 02/02/25 09:00 02/04/25 09:02 100 MLS/HR Allopurinol 100 mg DAILY PO 02/02/25 10:00 02/03/25 10:36 100 MG Amiodarone HCl 200 mg BID PO 02/02/25 10:00 02/03/25 21:31 200 MG Nitroglycerin 1 patch DAILY TD 02/02/25 10:00 02/03/25 12:12 1 PATCH Pantoprazole Sodium 40 mg DAILY PO 02/02/25 10:00 02/03/25 10:35 40 MG Valsartan 80 mg DAILY PO 02/02/25 10:00 02/03/25 10:34 80 MG Patient Own Medication 1 tab DAILY PO 02/02/25 10:00 UNV Patient Own Medication 1 tab BID PO 02/02/25 10:00 UNV Patient Own Medication 1 tab DAILY PO 02/02/25 10:00 Patient Own Medication 1 tab TID PO 02/02/25 14:00 UNV Patient Own Medication 1 tab DAILY PO 02/02/25 10:00 Azithromycin 250 ml @ 125 mls/hr DAILY IV 02/02/25 10:00 02/03/25 11:31 125 MLS/HR Amlodipine Besylate 10 mg DAILY PO 02/03/25 10:00 02/03/25 10:38 10 MG Folic Acid 1 mg DAILY PO 02/03/25 10:00 02/03/25 10:36 1 MG Magnesium Oxide 400 mg TID PO 02/02/25 14:00 02/03/25 21:31 400 MG Furosemide 40 mg BIDD IV 02/02/25 18:00 02/04/25 05:52 40 MG Laboratory Results Laboratory Tests 02/04/25 01:46 Chemistry Test 02/04/25 01:46 Calcium Level 9.1 mg/dL (8.7-10.4) Urinalysis Test 02/02/25 08:54 Urine Color Red (Yellow) H Urine Clarity Ex.turbid (Clear) Urine pH 8.5 (5.0-9.0) Urine Specific [place] 1.049 (1.001-1.035) Urine Protein 4+ (Negative) H Urine Ketones Negative (Negative) Urine Blood 3+ /uL (Negative) H Urine Nitrite Negative (Negative) Urine Bilirubin Negative (Negative) Urine Urobilinogen Normal mg/dL (Negative) Urine Leukocyte Esterase 3+ /uL (Negative) Urine RBC 6923 /hpf (0 - 4) Urine Microscopic WBC 521 /HPF (0-5) H Urine Squamous Epithelial Cells None seen /hpf (<5) Urine Bacteria None seen /hpf (None Seen) Urine Glucose Trace mg/dL (Normal) Microbiology Microbiology Date/Time Source Procedure Growth Status 02/02/25 14:08 Blood Blood Culture - Preliminary NO GROWTH AFTER 24 HOURS OF INCUBATION. Resulted 02/02/25 08:54 Urine - [place] Urine Culture - Final Complete Labs and/or images reviewed: Labs reviewed by me, Image(s) reviewed by me Assessment/Plan Assessment/Plan Transferred from [facility] Problem List/Assessment/Plan NSTEMI, rule out progressive coronary artery disease Coronary artery disease status post triple-vessel bypass CABG Acute on chronic decompensated HFrEF, NYHA class III Atrial fibrillation, likely paroxysmal (on Coumadin and amiodarone) Bioprosthetic aortic valve replacement History myocardial infarction Hypertension Dyslipidemia Acute hypoxic respiratory failure Ruled out PE Pneumonia Acute kidney injury Hematuria: DC heparin, urology consult by Dr. Yoon appreciated possible irradiation cystitis CVA Acute urinary tract infection: Blood cultures negative urine cultures negative, continue Rocephin History of ovarian cancer, now in remission Plan discussed with: Patient Date of Service: Feb 04, 2025 Billing Provider: RACHELLE STREET MD Common Visit Codes: [id number] CARE 30-[address] MD Feb 04, 2025 10:29
--- NOTE | 2025-02-04 17:23 | DVHSR ---
APPROVED REPORT EXAM: Two-dimensional and M-mode echocardiogram with Doppler and color Doppler. Blood Pressure: 127/69 mmHg INDICATION NSTEMI Surgery/Intervention Valve Replacement: Pacemaker: CABG: RISK FACTORS Height: 5' 3", Weight: 127 DIMENSIONS LVDd4.2 (3.8-5.7cm)LA (2D)4.3 (1.9-4.0cm)Aortic Root (2.0-3.7cm) LVDs3.5 (2.5-4.0cm)LA (MM) (1.9-4.0cm)Aortic Cusp Exc (1.5-2.0cm) EF (%) 35.0 (55-70%)Rt. Atrium4.7 (1.9-4.0cm)Asc. Aorta cm IVSd1.1 (0.7-1.1cm)RV (D) (1.8-2.4cm) PWd1.1 (0.7-1.1cm) Mitral Valve MitralMitral Stenosis E wave1.50m/sMV Mean GR.mmHg A wave1.00m/sMV Peak GR.mmHg E/A ratio1.52D MVAcm2 Aortic Valve Aortic ValveAortic Stenosis V10.80m/Cassandra Mean GR.15mmHg V22.60m/Cassandra Peak GR.28mmHg Pulmonic Valve V20.60m/s Tricuspid Valve TR Velocity2.50m/s [id number] Conclusion Technically good study. Undetermined rhythm. Left atrial enlargement with concentric LVH. Moderate mitral annular calcification. The base of the posterior mitral leaflet has moderate calcifi cation with diminished excursion of the posterior mitral leaflet. The anterior leaflet moves well. Mild aortic sclerosis. Calcified sinuses of Valsalva. Calcification of the papillary muscles. Left ventricular function is diminished. Ejection fraction is calculated at 0 proximally 30% with an terior apical hypokinesis of severe degree. Underlying overall general hypokinesis. Diminished righ t ventricular function. Moderate mitral insufficiency. [id number] tricuspid regurgitation. RVSP of 30 mmHg. No pericardial effusion, no vegetations or masses
[2025-02-05] VITALS (8 sets, daily range): BP systolic 99–125; BP diastolic 40–56; PULSE 52–94; RESP 17–18; TEMP 98–98.6; O2SAT 96–99
[2025-02-05 06:34] LABS: Basophils # (auto) 0 10 ^3/uL (0-0.2); Monocytes # (auto) 0.4 10 ^3/uL (0-1.3)
[2025-02-05 06:38] LABS: Basophils % (auto) 0.8 % (0.0-2.0); Eosinophils # (auto) 0 10 ^3/uL (0-0.8); Hematocrit 26.4 % (36.0-46.0); Hemoglobin 8.5 g/dL (12.2-16.2); Lymphocytes # (auto) 0.6 10 ^3/uL (0.4-5.4); Lymphocytes % (auto) 13.9 % (10.0-50.0); Mean Corpuscular Hemoglobin 25.5 pg (28.0-32.0); Mean Corpuscular Hgb Conc. 32.3 g/dL (32.0-36.0); Mean Corpuscular Volume 78.8 fL (80.0-100.0); Monocytes % (auto) 9.6 % (0.0-12.0); Neutrophils # (auto) 3.5 10 ^3/uL (1.6-8.6); Neutrophils % (auto) 74.7 % (37.0-80.0); Nucleated Red Blood Cells % 0.4 %; Platelet Count (auto) 153 10^3/uL (140-450); Red Blood Cells 3.35 10^6/uL (4.0-5.20); Red Cell Distribution Width 19.1 % (11.8-14.3); White Blood Cell 4.6 10^3/uL (4.4-10.8)
[2025-02-05 06:49] LABS: Chloride 105 mmol/L (98-107); Potassium 3.6 mmol/L (3.5-5.1); Sodium 144 mmol/L (136-145)
[2025-02-05 06:50] LABS: Anion Gap 8 (5-15); Carbon Dioxide 31 mmol/L (20-31)
[2025-02-05 06:51] LABS: Calcium 8.7 mg/dL (8.7-10.4)
[2025-02-05 06:55] LABS: BUN/Creatinine Ratio 26.2 (10.0-20.0); Glucose 100 mg/dL (74-106)
[2025-02-05 06:56] LABS: Blood Urea Nitrogen 39 mg/dL (9-23)
--- NOTE | 2025-02-05 10:21 | DVHPN2 ---
Reviewed: Care Plan, H&P, Labs, Medications, Previous Orders, Radiology Changes from previous H/P or p: No Changes Eyes: No Pain, No Vision change, No Conjunctivae inflammation, No Eyelid inflammation, No Other, No Redness ENT: No Ear pain, No Ear discharge, No Nose pain, No Nose discharge, No Nose congestion, No Mouth pain, No Mouth swelling, No Throat pain, No Throat swelling, No Other Cardiovascular: No Chest Pain, No Palpitations, No Orthopnea, No Paroxysmal Noc. Dyspnea, No Edema, No Lt Headedness, No Other Respiratory: No Cough, No Dry, No Shortness of breath, No SOB with excertion, No Wheezing, No Hemoptysis, No Pleuritic Pain, No Sputum, No Other Gastrointestinal: No Nausea, No Vomiting, No Abdominal Pain, No Diarrhea, No Constipation, No Melena, No Hematochezia, No Other Genitourinary: No Dysuria, No Frequency, No Incontinence; Hematuria; No Retention, No Other Musculoskeletal: No other, No neck pain, No shoulder pain, No arm pain, No back pain, No hand pain, No leg pain, No foot pain Skin: No Rash, No Lesions, No Jaundice, No Bruising, No Other Objective Vitals Vital Signs Date Time Temp Pulse Resp B/P (MAP) Pulse Ox O2 Delivery O2 Flow Rate FiO2 02/05/25 09:58 125/46 02/05/25 08:00 52 17 96 Oxymizer 3 N/A 02/05/25 05:00 98.4 98.4 Intake/Output Intake and Output 02/05/25 07:00 Intake Total 1200 ml Output Total 500 ml Balance 700 ml Intake Oral 1200 ml Output Urine Total 500 ml Medications Current Medications Medications Dose Ordered Sig/Bebo Route Start Time Stop Time Status Last Admin Dose Admin Sodium Chloride 10 ml Q8HR IV 02/02/25 14:00 02/05/25 05:43 10 ML Acetaminophen/ Hydrocodone Bitart 1 tab Q4HP PRN PO 02/02/25 07:00 Ondansetron HCl 4 mg Q4HP PRN IV 02/02/25 07:00 Docusate Sodium 100 mg BIDPRN PRN PO 02/02/25 07:00 Acetaminophen 650 mg Q6HP PRN PO 02/02/25 07:00 Nitroglycerin 0.4 mg Q5MINP PRN SL 02/02/25 07:00 Morphine Sulfate 2 mg Q30M PRN IV 02/02/25 07:00 Ceftriaxone Sodium 50 ml @ 100 mls/hr DAILY@09 IV 02/02/25 09:00 02/05/25 09:58 100 MLS/HR Allopurinol 100 mg DAILY PO 02/02/25 10:00 02/05/25 09:57 100 MG Amiodarone HCl 200 mg BID PO 02/02/25 10:00 02/05/25 09:57 200 MG Nitroglycerin 1 patch DAILY TD 02/02/25 10:00 02/04/25 10:56 1 PATCH Pantoprazole Sodium 40 mg DAILY PO 02/02/25 10:00 02/05/25 09:57 40 MG Valsartan 80 mg DAILY PO 02/02/25 10:00 02/05/25 09:57 80 MG Patient Own Medication 1 tab DAILY PO 02/02/25 10:00 UNV Patient Own Medication 1 tab BID PO 02/02/25 10:00 UNV Patient Own Medication 1 tab DAILY PO 02/02/25 10:00 Patient Own Medication 1 tab TID PO 02/02/25 14:00 UNV Patient Own Medication 1 tab DAILY PO 02/02/25 10:00 Azithromycin 250 ml @ 125 mls/hr DAILY IV 02/02/25 10:00 02/04/25 10:19 125 MLS/HR Amlodipine Besylate 10 mg DAILY PO 02/03/25 10:00 02/05/25 09:58 10 MG Folic Acid 1 mg DAILY PO 02/03/25 10:00 02/05/25 09:57 1 MG Magnesium Oxide 400 mg TID PO 02/02/25 14:00 02/05/25 05:43 400 MG Furosemide 40 mg BIDD IV 02/02/25 18:00 02/04/25 18:12 40 MG Laboratory Results Laboratory Tests 02/05/25 06:03 Chemistry Test 02/05/25 06:03 Calcium Level 8.7 mg/dL (8.7-10.4) Cardiac Markers Test 02/05/25 06:03 B-Type Natriuretic Peptide 370.11 pg/mL (0-100) Urinalysis Test 02/02/25 08:54 Urine Color Red (Yellow) H Urine Clarity Ex.turbid (Clear) Urine pH 8.5 (5.0-9.0) Urine Specific [place] 1.049 (1.001-1.035) Urine Protein 4+ (Negative) H Urine Ketones Negative (Negative) Urine Blood 3+ /uL (Negative) H Urine Nitrite Negative (Negative) Urine Bilirubin Negative (Negative) Urine Urobilinogen Normal mg/dL (Negative) Urine Leukocyte Esterase 3+ /uL (Negative) Urine RBC 6923 /hpf (0 - 4) Urine Microscopic WBC 521 /HPF (0-5) H Urine Squamous Epithelial Cells None seen /hpf (<5) Urine Bacteria None seen /hpf (None Seen) Urine Glucose Trace mg/dL (Normal) Microbiology Microbiology Date/Time Source Procedure Growth Status 02/02/25 14:08 Blood Blood Culture - Preliminary NO GROWTH AFTER 48 HOURS OF INCUBATION. Resulted 02/02/25 08:54 Urine - [place] Urine Culture - Final Complete Labs and/or images reviewed: Labs reviewed by me, Image(s) reviewed by me Assessment/Plan Assessment/Plan Transferred from [facility] NSTEMI, rule out progressive coronary artery disease Coronary artery disease status post triple-vessel bypass CABG Acute on chronic decompensated HFrEF, NYHA class III EF 30% , patient is now willing to undergo left heart catheterization, informed portfolio assistant nutrition services assistant Dr. Castellanos Atrial fibrillation, likely paroxysmal (on Coumadin and amiodarone) Bioprosthetic aortic valve replacement History myocardial infarction Hypertension Dyslipidemia Acute hypoxic respiratory failure Ruled out PE Pneumonia Acute kidney injury Hematuria: DC heparin, urology consult by Dr. Yoon appreciated possible irradiation cystitis CVA Acute urinary tract infection: Blood cultures negative urine cultures negative, continue Rocephin History of ovarian cancer, now in remission Plan discussed with: Patient My Orders Orders - RACHELLE STREET MD Procedure Category Date Status Time Renal DIET 02/04/25 Transmitted Standard(2gna,3gk,Lopho) Dinner Transfer Orders XFER 02/04/25 Transmitted 14:20 Date of Service: Feb 05, 2025 Billing Provider: RACHELLE STREET MD Common Visit Codes: [id number] INP/OBS CARE(HIGH) RACHELLE STREET MD Feb 05, 2025 10:21
--- NOTE | 2025-02-05 14:07 | DVHPN2 ---
Consult Progress Note Subjective Patient reports: Feels better Review of Systems: CVS:Normal (Deneis CP, Palpitations), RESPIRATORY:Abnormal (Dyspnea with exertion, slight improvement) Objective vital signs Vital Sign Date Time Temp Pulse Resp B/P (MAP) Pulse Ox O2 Delivery O2 Flow Rate FiO2 02/05/25 10:00 125/46 02/05/25 09:00 98.0 52 17 96 98.0 02/05/25 08:00 Oxymizer 3 N/A Total Intake and Output 02/04/25 02/04/25 02/05/25 15:00 23:00 07:00 Intake Total 720 ml 480 ml Output Total 500 ml Balance 720 ml -20 ml medications Current Medications Medications Dose Ordered Sig/Bebo Route Start Time Stop Time Status Last Admin Dose Admin Sodium Chloride 10 ml Q8HR IV 02/02/25 14:00 02/05/25 05:43 10 ML Acetaminophen/ Hydrocodone Bitart 1 tab Q4HP PRN PO 02/02/25 07:00 Ondansetron HCl 4 mg Q4HP PRN IV 02/02/25 07:00 Docusate Sodium 100 mg BIDPRN PRN PO 02/02/25 07:00 Acetaminophen 650 mg Q6HP PRN PO 02/02/25 07:00 Nitroglycerin 0.4 mg Q5MINP PRN SL 02/02/25 07:00 Morphine Sulfate 2 mg Q30M PRN IV 02/02/25 07:00 Ceftriaxone Sodium 50 ml @ 100 mls/hr DAILY@09 IV 02/02/25 09:00 02/05/25 09:58 100 MLS/HR Allopurinol 100 mg DAILY PO 02/02/25 10:00 02/05/25 09:57 100 MG Amiodarone HCl 200 mg BID PO 02/02/25 10:00 02/05/25 09:57 200 MG Nitroglycerin 1 patch DAILY TD 02/02/25 10:00 02/04/25 10:56 1 PATCH Pantoprazole Sodium 40 mg DAILY PO 02/02/25 10:00 02/05/25 09:57 40 MG Valsartan 80 mg DAILY PO 02/02/25 10:00 02/05/25 09:57 80 MG Patient Own Medication 1 tab DAILY PO 02/02/25 10:00 UNV Patient Own Medication 1 tab BID PO 02/02/25 10:00 UNV Patient Own Medication 1 tab DAILY PO 02/02/25 10:00 Patient Own Medication 1 tab TID PO 02/02/25 14:00 UNV Patient Own Medication 1 tab DAILY PO 02/02/25 10:00 Azithromycin 250 ml @ 125 mls/hr DAILY IV 02/02/25 10:00 02/05/25 11:29 125 MLS/HR Amlodipine Besylate 10 mg DAILY PO 02/03/25 10:00 02/05/25 09:58 10 MG Folic Acid 1 mg DAILY PO 02/03/25 10:00 02/05/25 09:57 1 MG Magnesium Oxide 400 mg TID PO 02/02/25 14:00 02/05/25 05:43 400 MG Furosemide 40 mg BIDD IV 02/02/25 18:00 02/04/25 18:12 40 MG laboratory and microbiology Laboratory Tests 02/05/25 06:03 Test 02/05/25 06:03 Range/Units Serum Glucose 100 74-106 mg/dL Problem List/Assessment/Plan Problem List/Assessment/Plan Problem List/Assessment/Plan NSTEMI, rule out coronary artery disease Questionable coronary artery disease Acute on chronic decompensated HFrEF, NYHA class III Atrial fibrillation, likely paroxysmal (on Coumadin and amiodarone) Bioprosthetic aortic valve replacement History myocardial infarction Hypertension Dyslipidemia Acute hypoxic respiratory failure Ruled out PE Pneumonia Acute kidney injury Hematuria CVA History of ovarian cancer, now in remission Plan/Recommendation (Dr. Rust): * Transthoracic echocardiogram to evaluate cardiac function * Strict intake and output, daily weights, maintain fluid restriction * [id number] VASc score: 6 points HAS-BLED: 3 points * Hold anticoagulation given severe anemia and hematuria; SCD's * Continue antiarrhythmic agent amiodarone * Hold beta-elisabeth until patient properly diuresed; will recheck BNP in AM * Keep hemoglobin >8.0 given possible hx of CAD * Diuresis as tolerated * Close Cardiac surveillance * Coronary angiogram if patient agreeable Case discussed with Dr. Rust. The patient who presents with an elevated troponin level denies any chest pain or cardiac symptoms. The patient's daughter had initially mentioned that the patient had a triple-vessel CABG in the past. After speaking with the patient, the patient is now stating that she does not remember that procedure. She reports that her open heart surgery was for her bioprosthetic aortic valve replacement. It was unclear if the patient has any history of coronary artery disease as the patient and her daughter have provided different information. Echo with low EF and anterior wall hypokinesis, Recommend coronary angiogram with left heart catheterization, possible intervention. Spoke with patient today and stated that she is willing and wanting to have procedure done, though after discussion with her family they want to wait and follow up with their primary staff radiologist Dr. Amezcua outpatient. No further cardiac workup indicated at this time. Patient understands the risks of still wants to proceed with outpatient follow up. Thank you for allowing us to care for this patient. Please call with any questions or concerns. Plan discussed with: Patient Dietary Evaluation Review Comments: 1) Advance diet as medically feasible 2) PN supplementation if NPO>5 days 3) Continue current plan of care Expected Outcomes/Goals: Pt will meet >75% estimated needs Fu 2-3 days Body Fat Depletion (Non Severe: Mild Depletion Muscle mass (Non-Severe): Mild Depletion (Moderate) Protein Calorie Malnutrition: Non-Severe Is there a minimum of two crit: Yes Date of Service: Feb 05, 2025 Billing Provider: JANNETH MCGINNIS Common Visit Codes: [id number] INP/OBS CARE(HIGH) JANNETH MCGINNIS Feb 05, 2025 14:07
--- NOTE | 2025-02-05 23:01 | DVHPN2 ---
Consult Progress Note Subjective Other Systems: Patient was seen and evaluated in follow up. Patient reports feeling better. Patient has minimal SOB. She is on 3 L oxymizer. HGB 8.5, HCT 26.4, BUN 39, FIELD STAFF 1.49, TROP 552. Telemetry reviewed. Objective vital signs Vital Sign Date Time Temp Pulse Resp B/P (MAP) Pulse Ox O2 Delivery O2 Flow Rate FiO2 02/05/25 18:31 111/52 02/05/25 17:00 98.6 94 17 98 98.6 02/05/25 08:00 Oxymizer 3 N/A Total Intake and Output 02/04/25 02/04/25 02/05/25 15:00 23:00 07:00 Intake Total 720 ml 480 ml Output Total 500 ml Balance 720 ml -20 ml medications Current Medications Medications Dose Ordered Sig/Bebo Route Start Time Stop Time Status Last Admin Dose Admin Sodium Chloride 10 ml Q8HR IV 02/02/25 14:00 02/05/25 21:32 10 ML Acetaminophen/ Hydrocodone Bitart 1 tab Q4HP PRN PO 02/02/25 07:00 Ondansetron HCl 4 mg Q4HP PRN IV 02/02/25 07:00 Docusate Sodium 100 mg BIDPRN PRN PO 02/02/25 07:00 Acetaminophen 650 mg Q6HP PRN PO 02/02/25 07:00 Nitroglycerin 0.4 mg Q5MINP PRN SL 02/02/25 07:00 Morphine Sulfate 2 mg Q30M PRN IV 02/02/25 07:00 Ceftriaxone Sodium 50 ml @ 100 mls/hr DAILY@09 IV 02/02/25 09:00 02/05/25 09:58 100 MLS/HR Allopurinol 100 mg DAILY PO 02/02/25 10:00 02/05/25 09:57 100 MG Amiodarone HCl 200 mg BID PO 02/02/25 10:00 02/05/25 21:32 200 MG Nitroglycerin 1 patch DAILY TD 02/02/25 10:00 02/04/25 10:56 1 PATCH Pantoprazole Sodium 40 mg DAILY PO 02/02/25 10:00 02/05/25 09:57 40 MG Valsartan 80 mg DAILY PO 02/02/25 10:00 02/05/25 09:57 80 MG Patient Own Medication 1 tab DAILY PO 02/02/25 10:00 UNV Patient Own Medication 1 tab BID PO 02/02/25 10:00 UNV Patient Own Medication 1 tab DAILY PO 02/02/25 10:00 Patient Own Medication 1 tab TID PO 02/02/25 14:00 UNV Patient Own Medication 1 tab DAILY PO 02/02/25 10:00 Azithromycin 250 ml @ 125 mls/hr DAILY IV 02/02/25 10:00 02/05/25 11:29 125 MLS/HR Amlodipine Besylate 10 mg DAILY PO 02/03/25 10:00 02/05/25 09:58 10 MG Folic Acid 1 mg DAILY PO 02/03/25 10:00 02/05/25 09:57 1 MG Magnesium Oxide 400 mg TID PO 02/02/25 14:00 02/05/25 21:31 400 MG Furosemide 40 mg BIDD IV 02/02/25 18:00 02/05/25 18:31 40 MG Examination: GENERAL:Normal, HEENT:Normal, NECK:Normal, LUNGS:Abnormal (decreased breath sounds ), CVS:Normal, ABDOMEN:Normal, SKIN:Normal, NEURO:Normal laboratory and microbiology Laboratory Tests 02/05/25 06:03 Test 02/05/25 06:03 Range/Units Serum Glucose 100 74-106 mg/dL Problem List/Assessment/Plan Problem List/Assessment/Plan NSTEMI, rule out coronary artery disease. Questionable coronary artery disease. Acute on chronic decompensated HFrEF, NYHA class III. Atrial fibrillation, likely paroxysmal (on Coumadin and amiodarone). Bioprosthetic aortic valve replacement. History myocardial infarction. Hypertension. Dyslipidemia. Acute hypoxic respiratory failure. Ruled out PE. Pneumonia. Acute kidney injury. Hematuria. CVA. History of ovarian cancer, now in remission. Plan/Recommendation Continued all current supportive medical care. Patient has been seen by Willie Dowling NP on my behalf, him and I discussed the plan with the patient. Transthoracic echocardiogram to evaluate cardiac function. Strict intake and output, daily weights, maintain fluid restriction. [id number] VASc score: 6 points HAS-BLED: 3 points. Hold anticoagulation given severe anemia and hematuria; SCD's. Continue antiarrhythmic agent amiodarone. Hold beta-elisabeth until patient properly diuresed; will recheck BNP in AM. Keep hemoglobin >8.0 given possible hx of CAD. Diuresis as tolerated. Close Cardiac surveillance. Recommend coronary angiogram with left heart catheterization, possible intervention. Patients family want to wait and follow up with their primary oyster preparer Dr. Amezcua outpatient. Patient understands the risks of waiting and wants to proceed with outpatient follow up. Additional plan as per the hospital course. Plan discussed with: Patient Dietary Evaluation Review Comments: 1) Advance diet as medically feasible 2) PN supplementation if NPO>5 days 3) Continue current plan of care Expected Outcomes/Goals: Pt will meet >75% estimated needs Fu 2-3 days Body Fat Depletion (Non Severe: Mild Depletion Muscle mass (Non-Severe): Mild Depletion (Moderate) Protein Calorie Malnutrition: Non-Severe Is there a minimum of two crit: Yes Date of Service: Feb 05, 2025 Billing Provider: PAULA ENGLISH MD Cardiology Common Codes: [id number] HOSP CARE(High PAULA ENGLISH MD Feb 05, 2025 21:49
[2025-02-06] VITALS (8 sets, daily range): BP systolic 102–116; BP diastolic 47–63; PULSE 80–93; RESP 16–20; TEMP 98–98.2; O2SAT 95–99
--- NOTE | 2025-02-06 10:28 | DVHPN2 ---
Reviewed: Care Plan, H&P, Labs, Medications, Previous Orders, Radiology Changes from previous H/P or p: No Changes Eyes: No Pain, No Vision change, No Conjunctivae inflammation, No Eyelid inflammation, No Other, No Redness ENT: No Ear pain, No Ear discharge, No Nose pain, No Nose discharge, No Nose congestion, No Mouth pain, No Mouth swelling, No Throat pain, No Throat swelling, No Other Cardiovascular: No Chest Pain, No Palpitations, No Orthopnea, No Paroxysmal Noc. Dyspnea, No Edema, No Lt Headedness, No Other Respiratory: No Cough, No Dry, No Shortness of breath, No SOB with excertion, No Wheezing, No Hemoptysis, No Pleuritic Pain, No Sputum, No Other Gastrointestinal: No Nausea, No Vomiting, No Abdominal Pain, No Diarrhea, No Constipation, No Melena, No Hematochezia, No Other Genitourinary: No Dysuria, No Frequency, No Incontinence; Hematuria; No Retention, No Other Musculoskeletal: No other, No neck pain, No shoulder pain, No arm pain, No back pain, No hand pain, No leg pain, No foot pain Skin: No Rash, No Lesions, No Jaundice, No Bruising, No Other Objective Vitals Vital Signs Date Time Temp Pulse Resp B/P (MAP) Pulse Ox O2 Delivery O2 Flow Rate FiO2 02/06/25 09:10 116/63 02/06/25 05:00 98.1 93 17 98 98.1 02/05/25 20:00 Oxymizer 4 N/A Intake/Output Intake and Output 02/06/25 07:00 Intake Total 1540 ml Output Total 825 ml Balance 715 ml Intake Oral 1240 ml IV Total 300 ml Output Urine Total 825 ml # Bowel Movements 1 Medications Current Medications Medications Dose Ordered Sig/Bebo Route Start Time Stop Time Status Last Admin Dose Admin Sodium Chloride 10 ml Q8HR IV 02/02/25 14:00 02/06/25 05:29 10 ML Acetaminophen/ Hydrocodone Bitart 1 tab Q4HP PRN PO 02/02/25 07:00 Ondansetron HCl 4 mg Q4HP PRN IV 02/02/25 07:00 Docusate Sodium 100 mg BIDPRN PRN PO 02/02/25 07:00 Acetaminophen 650 mg Q6HP PRN PO 02/02/25 07:00 Nitroglycerin 0.4 mg Q5MINP PRN SL 02/02/25 07:00 Morphine Sulfate 2 mg Q30M PRN IV 02/02/25 07:00 Ceftriaxone Sodium 50 ml @ 100 mls/hr DAILY@09 IV 02/02/25 09:00 02/06/25 09:08 100 MLS/HR Allopurinol 100 mg DAILY PO 02/02/25 10:00 02/06/25 09:08 100 MG Amiodarone HCl 200 mg BID PO 02/02/25 10:00 02/06/25 09:09 200 MG Nitroglycerin 1 patch DAILY TD 02/02/25 10:00 02/04/25 10:56 1 PATCH Pantoprazole Sodium 40 mg DAILY PO 02/02/25 10:00 02/06/25 09:08 40 MG Valsartan 80 mg DAILY PO 02/02/25 10:00 02/06/25 09:09 80 MG Patient Own Medication 1 tab DAILY PO 02/02/25 10:00 UNV Patient Own Medication 1 tab BID PO 02/02/25 10:00 UNV Patient Own Medication 1 tab DAILY PO 02/02/25 10:00 Patient Own Medication 1 tab TID PO 02/02/25 14:00 UNV Patient Own Medication 1 tab DAILY PO 02/02/25 10:00 Azithromycin 250 ml @ 125 mls/hr DAILY IV 02/02/25 10:00 02/05/25 11:29 125 MLS/HR Amlodipine Besylate 10 mg DAILY PO 02/03/25 10:00 02/06/25 09:10 10 MG Folic Acid 1 mg DAILY PO 02/03/25 10:00 02/06/25 09:08 1 MG Magnesium Oxide 400 mg TID PO 02/02/25 14:00 02/06/25 05:29 400 MG Furosemide 40 mg BIDD IV 02/02/25 18:00 02/05/25 18:31 40 MG Laboratory Results Laboratory Tests 02/05/25 06:03 Urinalysis Test 02/02/25 08:54 Urine Color Red (Yellow) H Urine Clarity Ex.turbid (Clear) Urine pH 8.5 (5.0-9.0) Urine Specific [place] 1.049 (1.001-1.035) Urine Protein 4+ (Negative) H Urine Ketones Negative (Negative) Urine Blood 3+ /uL (Negative) H Urine Nitrite Negative (Negative) Urine Bilirubin Negative (Negative) Urine Urobilinogen Normal mg/dL (Negative) Urine Leukocyte Esterase 3+ /uL (Negative) Urine RBC 6923 /hpf (0 - 4) Urine Microscopic WBC 521 /HPF (0-5) H Urine Squamous Epithelial Cells None seen /hpf (<5) Urine Bacteria None seen /hpf (None Seen) Urine Glucose Trace mg/dL (Normal) Microbiology Microbiology Date/Time Source Procedure Growth Status 02/02/25 14:08 Blood Blood Culture - Preliminary NO GROWTH AFTER 72 HOURS OF INCUBATION. Resulted 02/02/25 08:54 Urine - [place] Urine Culture - Final Complete Labs and/or images reviewed: Labs reviewed by me, Image(s) reviewed by me Assessment/Plan Assessment/Plan Transferred from [facility] NSTEMI, rule out progressive coronary artery disease Coronary artery disease status post triple-vessel bypass CABG Acute on chronic decompensated HFrEF, NYHA class III EF 30% , per family patient will have left heart cath by her primary goods layer Dr. Hiren Amezcua if necessary Atrial fibrillation, likely paroxysmal (on Coumadin and amiodarone) Bioprosthetic aortic valve replacement History myocardial infarction Hypertension Dyslipidemia Acute hypoxic respiratory failure Ruled out PE Pneumonia Acute kidney injury Hematuria: DC heparin, urology consult by Dr. Yoon appreciated possible irradiation cystitis CVA Acute urinary tract infection: Blood cultures negative urine cultures negative, continue Rocephin History of ovarian cancer, now in remission Pts Daughter Rufino [phone] at bedside Plan discussed with: Patient My Orders Orders - RACHELLE STREET MD Procedure Category Date Status Time * Cardiology Consult CONS 02/05/25 Transmitted 10:18 Date of Service: Feb 06, 2025 Billing Provider: RACHELLE STREET MD Common Visit Codes: [id number] INP/OBS CARE(HIGH) RACHELLE STREET MD Feb 06, 2025 10:27
[2025-02-06 11:34] LABS: COVID19 ANTIGEN SOFIA FIA NEGATIVE (NEGATIVE)
[2025-02-06 13:36] LABS: Base Excess -0.1 mmol/L (-2.0-3.0)
[2025-02-06] MEDS: ATORVASTATIN 20 MG TAB PO SCH (21:12)
--- NOTE | 2025-02-06 21:54 | DVHPN2 ---
Progress Note - Dictate Date Seen: Feb 06, 2025 Has the PT tested + for MRSA If YES, has PT been informed?: No Medical Necessity Reason Pt with a Central, PICC or Fol: Yes The following are medically ne: [place] Catheter Subjective Patient was seen and evaluated in follow-up. Patient complains of generalized pain and SOB. The patient is on 3 L Oxymizer. Prelim blood cultures show no growth. Telemetry reviewed. vital signs Vital Sign Date Time Temp Pulse Resp B/P (MAP) Pulse Ox O2 Delivery O2 Flow Rate FiO2 02/06/25 18:43 105/51 02/06/25 16:44 98.0 80 18 96 98.0 02/06/25 08:00 Oxymizer 3 N/A Total Intake and Output 02/05/25 02/05/25 02/06/25 15:00 23:00 07:00 Intake Total 300 ml 640 ml 600 ml Output Total 325 ml 500 ml Balance 300 ml 315 ml 100 ml medications Current Medications Medications Dose Ordered Sig/Bebo Route Start Time Stop Time Status Last Admin Dose Admin Sodium Chloride 10 ml Q8HR IV 02/02/25 14:00 02/06/25 21:12 10 ML Acetaminophen/ Hydrocodone Bitart 1 tab Q4HP PRN PO 02/02/25 07:00 Ondansetron HCl 4 mg Q4HP PRN IV 02/02/25 07:00 Docusate Sodium 100 mg BIDPRN PRN PO 02/02/25 07:00 Acetaminophen 650 mg Q6HP PRN PO 02/02/25 07:00 Nitroglycerin 0.4 mg Q5MINP PRN SL 02/02/25 07:00 Morphine Sulfate 2 mg Q30M PRN IV 02/02/25 07:00 Ceftriaxone Sodium 50 ml @ 100 mls/hr DAILY@09 IV 02/02/25 09:00 02/06/25 09:08 100 MLS/HR Allopurinol 100 mg DAILY PO 02/02/25 10:00 02/06/25 09:08 100 MG Amiodarone HCl 200 mg BID PO 02/02/25 10:00 02/06/25 21:12 200 MG Nitroglycerin 1 patch DAILY TD 02/02/25 10:00 02/04/25 10:56 1 PATCH Pantoprazole Sodium 40 mg DAILY PO 02/02/25 10:00 02/06/25 09:08 40 MG Valsartan 80 mg DAILY PO 02/02/25 10:00 02/06/25 09:09 80 MG Patient Own Medication 1 tab DAILY PO 02/02/25 10:00 UNV Patient Own Medication 1 tab BID PO 02/02/25 10:00 UNV Patient Own Medication 1 tab DAILY PO 02/02/25 10:00 Hold Patient Own Medication 1 tab TID PO 02/02/25 14:00 UNV Patient Own Medication 1 tab DAILY PO 02/02/25 10:00 Azithromycin 250 ml @ 125 mls/hr DAILY IV 02/02/25 10:00 02/06/25 10:00 125 MLS/HR Amlodipine Besylate 10 mg DAILY PO 02/03/25 10:00 02/06/25 09:10 10 MG Folic Acid 1 mg DAILY PO 02/03/25 10:00 02/06/25 09:08 1 MG Magnesium Oxide 400 mg TID PO 02/02/25 14:00 02/06/25 21:12 400 MG Furosemide 40 mg BIDD IV 02/02/25 18:00 02/06/25 18:43 40 MG Atorvastatin Calcium 20 mg HS PO 02/06/25 22:00 02/06/25 21:12 20 MG objective GENERAL: Awake, alert, oriented. LUNGS: Clear. CARDIOVASCULAR: Heart sounds are good. ABDOMEN: Soft. laboratory and microbiology Laboratory Tests 02/05/25 06:03 Test 02/05/25 06:03 Range/Units Serum Glucose 100 74-106 mg/dL Problem List NSTEMI, rule out coronary artery disease. Questionable coronary artery disease. Acute on chronic decompensated HFrEF, NYHA class III. Atrial fibrillation, likely paroxysmal (on Coumadin and amiodarone). Bioprosthetic aortic valve replacement. History myocardial infarction. Hypertension. Dyslipidemia. Acute hypoxic respiratory failure. Ruled out PE. Pneumonia. Acute kidney injury. Hematuria. CVA. History of ovarian cancer, now in remission. Assessment/Plan Continued all current supportive medical care. Morphine and [place] for pain management. Amiodarone. Amlodipine. Lipitor. Diuretics with Lasix. GI prophylactics. IV antibiotics as ordered. Additional plan as per the hospital course. Dietary Evaluation Review Comments: 1) Advance diet as medically feasible 2) PN supplementation if NPO>5 days 3) Continue current plan of care Expected Outcomes/Goals: Pt will meet >75% estimated needs Fu 2-3 days Body Fat Depletion (Non Severe: Mild Depletion Muscle mass (Non-Severe): Mild Depletion (Moderate) Protein Calorie Malnutrition: Non-Severe Is there a minimum of two crit: Yes Plan discussed with: Patient PAULA ENGLISH MD Feb 06, 2025 21:43
[2025-02-06] MEDS: ACETAMINOPHEN 325 MG TAB PO PRN (23:17)
[2025-02-07 01:00] VITALS: BP 104/46; PULSE 103; RESP 16; TEMP 98.4; O2SAT 92
[2025-02-07 05:00] VITALS: BP 114/49; PULSE 78; RESP 16; TEMP 98.5; O2SAT 92
[2025-02-07 08:00] VITALS: PULSE 87; PULSE 91; RESP 18; O2SAT 98
[2025-02-07 09:00] VITALS: BP 113/45; PULSE 91; RESP 18; TEMP 98.4; O2SAT 94
--- NOTE | 2025-02-07 11:23 | DVHPN2 ---
Reviewed: Care Plan, H&P, Labs, Medications, Previous Orders, Radiology Changes from previous H/P or p: No Changes Eyes: No Pain, No Vision change, No Conjunctivae inflammation, No Eyelid inflammation, No Other, No Redness ENT: No Ear pain, No Ear discharge, No Nose pain, No Nose discharge, No Nose congestion, No Mouth pain, No Mouth swelling, No Throat pain, No Throat swelling, No Other Cardiovascular: No Chest Pain, No Palpitations, No Orthopnea, No Paroxysmal Noc. Dyspnea, No Edema, No Lt Headedness, No Other Respiratory: No Cough, No Dry, No Shortness of breath, No SOB with excertion, No Wheezing, No Hemoptysis, No Pleuritic Pain, No Sputum, No Other Gastrointestinal: No Nausea, No Vomiting, No Abdominal Pain, No Diarrhea, No Constipation, No Melena, No Hematochezia, No Other Genitourinary: No Dysuria, No Frequency, No Incontinence; Hematuria; No Retention, No Other Musculoskeletal: No other, No neck pain, No shoulder pain, No arm pain, No back pain, No hand pain, No leg pain, No foot pain Skin: No Rash, No Lesions, No Jaundice, No Bruising, No Other Objective Vitals Vital Signs Date Time Temp Pulse Resp B/P (MAP) Pulse Ox O2 Delivery O2 Flow Rate FiO2 02/07/25 09:57 113/45 02/07/25 09:00 98.4 91 18 94 98.4 02/06/25 20:00 Nasal Cannula* 3 32 Intake/Output Intake and Output 02/07/25 07:00 Intake Total 950 ml Output Total 300 ml Balance 650 ml Intake Oral 950 ml Output Urine Total 300 ml Medications Current Medications Medications Dose Ordered Sig/Bebo Route Start Time Stop Time Status Last Admin Dose Admin Sodium Chloride 10 ml Q8HR IV 02/02/25 14:00 02/07/25 05:34 10 ML Acetaminophen/ Hydrocodone Bitart 1 tab Q4HP PRN PO 02/02/25 07:00 Ondansetron HCl 4 mg Q4HP PRN IV 02/02/25 07:00 Docusate Sodium 100 mg BIDPRN PRN PO 02/02/25 07:00 Acetaminophen 650 mg Q6HP PRN PO 02/02/25 07:00 02/07/25 10:05 650 MG Nitroglycerin 0.4 mg Q5MINP PRN SL 02/02/25 07:00 Morphine Sulfate 2 mg Q30M PRN IV 02/02/25 07:00 Ceftriaxone Sodium 50 ml @ 100 mls/hr DAILY@09 IV 02/02/25 09:00 02/07/25 09:49 100 MLS/HR Allopurinol 100 mg DAILY PO 02/02/25 10:00 02/07/25 09:55 100 MG Amiodarone HCl 200 mg BID PO 02/02/25 10:00 02/07/25 09:55 200 MG Nitroglycerin 1 patch DAILY TD 02/02/25 10:00 02/04/25 10:56 1 PATCH Pantoprazole Sodium 40 mg DAILY PO 02/02/25 10:00 02/07/25 09:57 40 MG Valsartan 80 mg DAILY PO 02/02/25 10:00 02/07/25 09:56 80 MG Patient Own Medication 1 tab DAILY PO 02/02/25 10:00 UNV Patient Own Medication 1 tab BID PO 02/02/25 10:00 UNV Patient Own Medication 1 tab DAILY PO 02/02/25 10:00 Hold Patient Own Medication 1 tab TID PO 02/02/25 14:00 UNV Patient Own Medication 1 tab DAILY PO 02/02/25 10:00 Azithromycin 250 ml @ 125 mls/hr DAILY IV 02/02/25 10:00 02/06/25 10:00 125 MLS/HR Amlodipine Besylate 10 mg DAILY PO 02/03/25 10:00 02/07/25 09:57 10 MG Folic Acid 1 mg DAILY PO 02/03/25 10:00 02/07/25 09:55 1 MG Magnesium Oxide 400 mg TID PO 02/02/25 14:00 02/07/25 05:34 400 MG Furosemide 40 mg BIDD IV 02/02/25 18:00 02/07/25 05:34 40 MG Atorvastatin Calcium 20 mg HS PO 02/06/25 22:00 02/06/25 21:12 20 MG Laboratory Results Laboratory Tests 02/05/25 06:03 Urinalysis Test 02/02/25 08:54 Urine Color Red (Yellow) H Urine Clarity Ex.turbid (Clear) Urine pH 8.5 (5.0-9.0) Urine Specific [place] 1.049 (1.001-1.035) Urine Protein 4+ (Negative) H Urine Ketones Negative (Negative) Urine Blood 3+ /uL (Negative) H Urine Nitrite Negative (Negative) Urine Bilirubin Negative (Negative) Urine Urobilinogen Normal mg/dL (Negative) Urine Leukocyte Esterase 3+ /uL (Negative) Urine RBC 6923 /hpf (0 - 4) Urine Microscopic WBC 521 /HPF (0-5) H Urine Squamous Epithelial Cells None seen /hpf (<5) Urine Bacteria None seen /hpf (None Seen) Urine Glucose Trace mg/dL (Normal) Blood Gas Results Test 02/06/25 13:25 Arterial Blood pH 7.462 (7.350-7.450) FiO2 % 21.0 Microbiology Microbiology Date/Time Source Procedure Growth Status 02/02/25 14:08 Blood Blood Culture - Preliminary NO GROWTH AFTER 72 HOURS OF INCUBATION. Resulted 02/02/25 08:54 Urine - [place] Urine Culture - Final Complete Labs and/or images reviewed: Labs reviewed by me, Image(s) reviewed by me Assessment/Plan Assessment/Plan Transferred from [facility] NSTEMI, rule out progressive coronary artery disease Coronary artery disease status post triple-vessel bypass CABG Acute on chronic decompensated HFrEF, NYHA class III EF 30% , per family patient will have left heart cath by her primary electrical controls engineer Dr. Hiren Amezcua if necessary Atrial fibrillation, likely paroxysmal (on Coumadin and amiodarone) Bioprosthetic aortic valve replacement History myocardial infarction Hypertension Dyslipidemia Acute hypoxic respiratory failure Ruled out PE Pneumonia Acute kidney injury Hematuria: DC heparin, urology consult by Dr. Yoon appreciated possible irradiation cystitis CVA Acute urinary tract infection: Blood cultures negative urine cultures negative, continue Rocephin History of ovarian cancer, now in remission Pts Daughter Rufino [phone] at bedside; does not want group home facility placement Discharged home p.o. antibiotics for pneumonia Plan discussed with: Patient My Orders Orders - RACHELLE STREET MD Procedure Category Date Status Time Atorvastatin (Lipitor) PHA 02/06/25 In Process 22:00 Date of Service: Feb 07, 2025 Billing Provider: RACHELLE STREET MD Common Visit Codes: [id number] INP/OBS CARE(HIGH) RACHELLE STREET MD Feb 07, 2025 11:23
--- NOTE | 2025-02-07 11:26 | DVHPN2 ---
Progress Note - Dictate Date Seen: Feb 07, 2025 Has the PT tested + for MRSA If YES, has PT been informed?: No Medical Necessity Reason Pt with a Central, PICC or Fol: Yes The following are medically ne: [place] Catheter Subjective Patient was seen and evaluated in follow-up. Patient is on 2 LPM NC. SOB is improving. Patient is resting in bed. Denies any pain or discomfort. Telemetry reviewed. vital signs Vital Sign Date Time Temp Pulse Resp B/P (MAP) Pulse Ox O2 Delivery O2 Flow Rate FiO2 02/07/25 09:57 113/45 02/07/25 09:00 98.4 91 18 94 98.4 02/06/25 20:00 Nasal Cannula* 3 32 Total Intake and Output 02/06/25 02/06/25 02/07/25 15:00 23:00 07:00 Intake Total 950 ml 0 ml Output Total 300 ml Balance 650 ml 0 ml medications Current Medications Medications Dose Ordered Sig/Bebo Route Start Time Stop Time Status Last Admin Dose Admin Sodium Chloride 10 ml Q8HR IV 02/02/25 14:00 02/07/25 05:34 10 ML Acetaminophen/ Hydrocodone Bitart 1 tab Q4HP PRN PO 02/02/25 07:00 Ondansetron HCl 4 mg Q4HP PRN IV 02/02/25 07:00 Docusate Sodium 100 mg BIDPRN PRN PO 02/02/25 07:00 Acetaminophen 650 mg Q6HP PRN PO 02/02/25 07:00 02/07/25 10:05 650 MG Nitroglycerin 0.4 mg Q5MINP PRN SL 02/02/25 07:00 Morphine Sulfate 2 mg Q30M PRN IV 02/02/25 07:00 Ceftriaxone Sodium 50 ml @ 100 mls/hr DAILY@09 IV 02/02/25 09:00 02/07/25 09:49 100 MLS/HR Allopurinol 100 mg DAILY PO 02/02/25 10:00 02/07/25 09:55 100 MG Amiodarone HCl 200 mg BID PO 02/02/25 10:00 02/07/25 09:55 200 MG Nitroglycerin 1 patch DAILY TD 02/02/25 10:00 02/04/25 10:56 1 PATCH Pantoprazole Sodium 40 mg DAILY PO 02/02/25 10:00 02/07/25 09:57 40 MG Valsartan 80 mg DAILY PO 02/02/25 10:00 02/07/25 09:56 80 MG Patient Own Medication 1 tab DAILY PO 02/02/25 10:00 UNV Patient Own Medication 1 tab BID PO 02/02/25 10:00 UNV Patient Own Medication 1 tab DAILY PO 02/02/25 10:00 Hold Patient Own Medication 1 tab TID PO 02/02/25 14:00 UNV Patient Own Medication 1 tab DAILY PO 02/02/25 10:00 Azithromycin 250 ml @ 125 mls/hr DAILY IV 02/02/25 10:00 02/06/25 10:00 125 MLS/HR Amlodipine Besylate 10 mg DAILY PO 02/03/25 10:00 02/07/25 09:57 10 MG Folic Acid 1 mg DAILY PO 02/03/25 10:00 02/07/25 09:55 1 MG Magnesium Oxide 400 mg TID PO 02/02/25 14:00 02/07/25 05:34 400 MG Furosemide 40 mg BIDD IV 02/02/25 18:00 02/07/25 05:34 40 MG Atorvastatin Calcium 20 mg HS PO 02/06/25 22:00 02/06/25 21:12 20 MG objective GENERAL: Awake, alert, oriented. LUNGS: Clear. CARDIOVASCULAR: Heart sounds are good. ABDOMEN: Soft. laboratory and microbiology Laboratory Tests 02/05/25 06:03 Test 02/05/25 06:03 Range/Units Serum Glucose 100 74-106 mg/dL Problem List NSTEMI, rule out coronary artery disease. Questionable coronary artery disease. Acute on chronic decompensated HFrEF, NYHA class III. Atrial fibrillation, likely paroxysmal (on Coumadin and amiodarone). Bioprosthetic aortic valve replacement. History myocardial infarction. Hypertension. Dyslipidemia. Acute hypoxic respiratory failure. Ruled out PE. Pneumonia. Acute kidney injury. Hematuria. CVA. History of ovarian cancer, now in remission. Assessment/Plan Continued all current supportive medical care. Morphine and [place] for pain management. Amiodarone. Amlodipine. Lipitor. Diuretics with Lasix. GI prophylactics. IV antibiotics as ordered. Additional plan as per the hospital course. Dietary Evaluation Review Comments: 1) Advance diet as medically feasible 2) PN supplementation if NPO>5 days 3) Continue current plan of care Expected Outcomes/Goals: Pt will meet >75% estimated needs Fu 2-3 days Body Fat Depletion (Non Severe: Mild Depletion Muscle mass (Non-Severe): Mild Depletion (Moderate) Protein Calorie Malnutrition: Non-Severe Is there a minimum of two crit: Yes Plan discussed with: Patient PAULA ENGLISH MD Feb 07, 2025 11:26
--- NOTE | 2025-02-07 11:29 | DVHDS2 ---
Discharge Summary Date of Admission Feb 02, 2025 at 06:59 Date of Discharge: Feb 07, 2025 Admitting Diagnosis Shortness of breath Wounds: None Labs/Diagnostic Data: Laboratory Results Test 02/06/25 13:25 02/06/25 10:45 02/05/25 06:03 02/03/25 06:19 Blood Gas Specimen Type Arterial Blood Gas Sample Site Right radial Blood Gas Patient Temperature 37.0 Arterial Blood Date Drawn [id number] Arterial Blood pH 7.462 (7.350-7.450) Arterial Blood Partial Pressure CO2 33.5 mmHg (32.0-45.0) Arterial Blood Partial Pressure O2 69.3 mmHg (83.0-108.0) Arterial Blood HCO3 23.4 mmol/L (21.0-28.0) Arterial Blood Oxygen Saturation 92.2 % (94.0-98.0) Arterial Blood Base Excess -0.1 mmol/L (-2.0-3.0) Arterial Blood Oxyhemoglobin 91.0 % (94.0-98.0) Arterial Blood Carboxyhemoglobin 1.0 % (0.5-1.5) Arterial Blood Methemoglobin 0.3 % (0.0-1.5) Mic Test Yes Blood Gas Total Hemoglobin 8.60 g/dL (12.0-16.0) Blood Gas Liter Flow 0.00 Blood Gas Modality Room air FiO2 % 21.0 SARS-CoV-2 Antigen (Rapid) Negative (NEGATIVE) White Blood Count 4.6 10^3/uL (4.4-10.8) Red Blood Count 3.35 10^6/uL (4.0-5.20) Hemoglobin 8.5 g/dL (12.2-16.2) Hematocrit 26.4 % (36.0-46.0) Mean Corpuscular Volume 78.8 fL (80.0-100.0) Mean Corpuscular Hemoglobin 25.5 pg (28.0-32.0) Mean Corpuscular Hemoglobin Concent 32.3 g/dL (32.0-36.0) Red Cell Distribution Width 19.1 % (11.8-14.3) Platelet Count 153 10^3/uL (140-450) Mean Platelet Volume 8.0 fL (6.9-10.8) Neutrophils (%) (Auto) 74.7 % (37.0-80.0) Lymphocytes (%) (Auto) 13.9 % (10.0-50.0) Monocytes (%) (Auto) 9.6 % (0.0-12.0) Eosinophils (%) (Auto) 1.0 % (0.0-7.0) Basophils (%) (Auto) 0.8 % (0.0-2.0) Neutrophils # (Auto) 3.5 10 ^3/uL (1.6-8.6) Lymphocytes # (Auto) 0.6 10 ^3/uL (0.4-5.4) Monocytes # (Auto) 0.4 10 ^3/uL (0-1.3) Eosinophils # (Auto) 0 10 ^3/uL (0-0.8) Basophils # (Auto) 0 10 ^3/uL (0-0.2) Nucleated Red Blood Cells 0.4 % Sodium Level 144 mmol/L (136-145) Potassium Level 3.6 mmol/L (3.5-5.1) Chloride Level 105 mmol/L (98-107) Carbon Dioxide Level 31 mmol/L (20-31) Anion Gap 8 (5-15) Blood Urea Nitrogen 39 mg/dL (9-23) Creatinine 1.49 mg/dL (0.550-1.02) Glomerular Filtration Rate Calc 34 mL/min (>90) BUN/Creatinine Ratio 26.2 (10.0-20.0) Serum Glucose 100 mg/dL (74-106) Calcium Level 8.7 mg/dL (8.7-10.4) Troponin I High Sensitivity 552 ng/L (</=34) B-Type Natriuretic Peptide 370.11 pg/mL (0-100) Total Bilirubin 0.8 mg/dL (0.2-1.0) Aspartate Amino Transferase (AST) 129 U/L (13-40) Alanine Aminotransferase (ALT) 150 U/L (7-40) Alkaline Phosphatase 65 U/L (46-116) Total Protein 5.5 g/dL (5.7-8.2) Albumin 3.4 g/dL (3.2-4.8) Test 02/02/25 08:54 02/02/25 08:14 02/02/25 06:31 02/02/25 05:00 Urine Color Red (Yellow) Urine Clarity Ex.turbid (Clear) Urine pH 8.5 (5.0-9.0) Urine Specific [place] 1.049 (1.001-1.035) Urine Protein 4+ (Negative) Urine Ketones Negative (Negative) Urine Blood 3+ /uL (Negative) Urine Nitrite Negative (Negative) Urine Bilirubin Negative (Negative) Urine Urobilinogen Normal mg/dL (Negative) Urine Leukocyte Esterase 3+ /uL (Negative) Urine RBC 6923 /hpf (0 - 4) Urine Microscopic WBC 521 /HPF (0-5) Urine Squamous Epithelial Cells None seen /hpf (<5) Urine Bacteria None seen /hpf (None Seen) Urine Glucose Trace mg/dL (Normal) D-Dimer, Quantitative 0.79 mg/L FEU (0.0-0.49) Blood Gas Set Respiration Rate 12.0 Blood Gas Spontaneous Tidal Volume 540 Blood Gas EPAP 6 Blood Gas IPAP 16 Blood Gas Comments I-time 0.90 sec. Prothrombin Time 24.1 sec (9.3-11.8) Prothrombin Time INR 2.49 (0.9-1.15) Activated Partial Thromboplast Time 35.9 SEC (24.5-34.5) Hemoglobin A1c 5.9 % A1C (<5.7) Magnesium Level 2.0 mg/dL (1.6-2.6) Triglycerides Level 67 mg/dL (< 150) Cholesterol Level 139 mg/dL (< 200) LDL Cholesterol 37 mg/dL (< 100) HDL Cholesterol 83 mg/dL (40-59) Thyroid Stimulating Hormone (TSH) 0.49 uIU/mL (0.55-4.78) Other Laboratory Tests 02/05/25 06:03 Brief Hx & Hospital Course: 54-year-old female with multiple medical problems including hypertension hypercholesterolemia history of RI pneumoniae hematuria CVA ovarian cancer in remission history of coronary artery disease status post triple-vessel bypass coronary angiography came in for chest pain and shortness of breaths found to have non ST-elevation RI. patient also had acute on chronic systolic congestive heart failure with the ejection fraction [address] Castellanos advised left heart catheterization by the patient prefers to have it done by her primary varnish remover Dr.Omar Amezcua as an outpatient community-acquired pneumonia treated with Rocephin and azithromycin. UTI treated with the Rocephin blood cultures negative urine cultures negative. The patient's daughterJamie at the bedside request to be discharged home. Discharged home on azithromycin for pneumonia she will continue all other home medications. Consults/Reason for consult Cardiology Dr. Castellanos Operations or Procedures Echocardiogram Condition at Discharge: Fair Final Diagnosis/Problems List NSTEMI, rule out progressive coronary artery disease Coronary artery disease status post triple-vessel bypass CABG Acute on chronic decompensated HFrEF, NYHA class III EF 30% , per family patient will have left heart cath by her primary varnish remover Dr. Hiren Amezcua if necessary Atrial fibrillation, likely paroxysmal (on Coumadin and amiodarone) Bioprosthetic aortic valve replacement History myocardial infarction Hypertension Dyslipidemia Acute hypoxic respiratory failure Ruled out PE Pneumonia Acute kidney injury Hematuria: DC heparin, urology consult by Dr. Yoon appreciated possible irradiation cystitis CVA Acute urinary tract infection: Blood cultures negative urine cultures negative, continue Rocephin History of ovarian cancer, now in remission Discharge Disposition: Home Discharge Instruct/Medications Diet: Cardiac 2g Na,low cholest Activity: Light activity Follow Up/Referral: Continue all your previous home medications Follow up with your primary Dr in one week Follow up with your cardiology Dr. Hiren Amezcua in one week for possible left heart catheterization Medications: Azithromycin Transmitted to pharmacy Discharge Statement: "Patient was advised to return to the ER or call 911 if any headaches, dizziness, shortness of breath, chest pain, abdominal pain, bleeding, fevers, or worsening of medical condition. Patient was counseled about treatment plan, medications, possible side effects, patientverbalized understanding. All questions were answered to the best of my ability. This discharge took greater then 30 minutes in planning, reviewing documentation, counseling the patient, and discussing with other team members." ASSESSMENT ASSESSMENT Hospital Course Improved Assessment NSTEMI, rule out progressive coronary artery disease Coronary artery disease status post triple-vessel bypass CABG Acute on chronic decompensated HFrEF, NYHA class III EF 30% , per family patient will have left heart cath by her primary varnish remover Dr. Hiren Amezcua if necessary Atrial fibrillation, likely paroxysmal (on Coumadin and amiodarone) Bioprosthetic aortic valve replacement History myocardial infarction Hypertension Dyslipidemia Acute hypoxic respiratory failure Ruled out PE Pneumonia Acute kidney injury Hematuria: DC heparin, urology consult by Dr. Yoon appreciated possible irradiation cystitis CVA Acute urinary tract infection: Blood cultures negative urine cultures negative, continue Rocephin History of ovarian cancer, now in remission Date of Service: Feb 07, 2025 Billing Provider: RACHELLE STREET MD Common Visit Codes: 55059-OCB/OBS DISCH DAY >30min R[address]RE[address] MD Feb 07, 2025 11:29
[2025-02-07] MEDS ORDERED: AZIT500T66 PO (11:30)
[2025-02-07 12:38] VITALS: BP 102/51; PULSE 86; RESP 16; TEMP 98.1; O2SAT 94
[2025-02-07 12:43] VITALS: BP 113/45; PULSE 86; RESP 18; TEMP 98.6; O2SAT 94
== END 2025-02-07 16:30 | disposition home or self-care (01) | DRG 280 ==
LOC: EDBD 04:34 → ER 04:34 → OVERFLOW 06:59 → DOU IN ICU 02-04 04:05 → TELE-WESTW 02-04 15:30
PROVIDERS: ADMIT Family Medicine; ATTEND Family Medicine
PROC: 5A09357 Assistance with Respiratory Ventilation, Less than 24 Consecutive Hours, Continuous Positive Airway Pressure (ICD-10-PCS; principal; 2025-02-02)
PROC: 5A09357 Assistance with Respiratory Ventilation, Less than 24 Consecutive Hours, Continuous Positive Airway Pressure (ICD-10-PCS; 2025-02-03)
DX: I21.4 Non-ST elevation (NSTEMI) myocardial infarction (principal); I50.23 Acute on chronic systolic (congestive) heart failure; J96.01 Acute respiratory failure with hypoxia; J15.69 Pneumonia due to other Gram-negative bacteria; J15.9 Unspecified bacterial pneumonia; N17.9 Acute kidney failure, unspecified; J90 Pleural effusion, not elsewhere classified; C56.9 Malignant neoplasm of unspecified ovary; N39.0 Urinary tract infection, site not specified; C78.00 Secondary malignant neoplasm of unspecified lung; E46 Unspecified protein-calorie malnutrition; Z68.1 Body mass index [BMI] 19.9 or less, adult; Z20.822 Contact with and (suspected) exposure to COVID-19; E78.5 Hyperlipidemia, unspecified; R31.9 Hematuria, unspecified; I25.10 Atherosclerotic heart disease of native coronary artery without angina pectoris; E78.00 Pure hypercholesterolemia, unspecified; D64.9 Anemia, unspecified; I11.0 Hypertensive heart disease with heart failure; I48.0 Paroxysmal atrial fibrillation; Z98.61 Coronary angioplasty status; Z95.3 Presence of xenogenic heart valve; Z86.73 Personal history of transient ischemic attack (TIA), and cerebral infarction without residual deficits; Z95.1 Presence of aortocoronary bypass graft; Z92.21 Personal history of antineoplastic chemotherapy; Z90.710 Acquired absence of both cervix and uterus; Z87.440 Personal history of urinary (tract) infections; Z85.118 Personal history of other malignant neoplasm of bronchus and lung; Z79.01 Long term (current) use of anticoagulants; Z79.899 Other long term (current) drug therapy
CPT/HCPCS: 36415; 36600; 71045; 74176; 76604; 78582; 80048; 80053; 80061; 81001; 82805; 83036; 83735; 83880; 84443; 84484; 85014; 85018; 85025; 85379; 85610; 85730; 87040; 87086; 87426; 93005; 93306; 94640; 94660; 96365; 96375; 97163; 99291; G0378